=== PATIENT | female | born 2000 | race Caucasian/White ===

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

== ENCOUNTER 2018-02-17 14:35 | Emergency (ER) | payer MEDICAID ==
[~2018-02-17] VITALS: Ht 157.5 cm; Wt 61.2 kg
[~2018-02-17 14:35] MED LIST changes: +PSEUDOEPHEDRINE60 MG PO
[2018-02-17 14:44] VITALS: BP 103/63
[2018-02-17] MEDS ORDERED: Acetaminophen 500mg (ES) tab ORAL ONE (15:00)
--- NOTE | 2018-02-17 15:00 | Emergency Room Report ---
History of Present Illness General Chief Complaint: Pain Source: Patient, Medical Record (Bacilio Higginbotham) Present Illness HPI 17year-old female patient presents ER complaining of left rib pain for the past 3 days. Patient reports pain has been increasing since initial onset. Patient denies history of injury or trauma to the area. Patient denies other acute symptoms at this time. Patient denies chest pain, shortness breath, abdominal pain, diarrhea, constipation, dysuria, hematuria. patient states she is concerned that she "needed surgery" he has her brother recently had appendicitis surgery. Patient denies past medical history. Denies hx of asthma or cardiovascular symptoms. Reports last BM yesterday, normal. (Bacilio Higginbotham) Allergies: Coded Allergies: No Known Allergies (Unverified , 03/10/16) Patient History Past Medical History: see triage record Last Menstrual Period: 01/21/18 Reviewed Nursing Documentation: PMH: Agreed; PSxH: Agreed (Bacilio Higginbotham) Nursing Documentation-PMH Past Medical History: No History, Except For Hx Neurological Problems: Yes - migraine Hx Seizures: Yes (Bacilio Higginbotham) Review of Systems All Other Systems: negative except mentioned in HPI (Bacilio Higginbotham) Physical Exam Vital Signs Date Time Temp Pulse Resp B/P (MAP) Pulse Ox O2 Delivery O2 Flow Rate FiO2 02/17/18 14:38 97.9 87 18 103/63 100 Room Air 97.9 Sp02 EP Interpretation: reviewed, normal General Appearance: well appearing, no apparent distress, alert, GCS 15, non- toxic Head: normocephalic, atraumatic Eyes: bilateral eye normal inspection, bilateral eye PERRL ENT: hearing grossly normal, normal pharynx, no angioedema, normal voice, uvula midline, moist mucus membranes Neck: full range of motion Respiratory: lungs clear, normal breath sounds, no rhonchi, no respiratory distress, no accessory muscle use, no wheezing, speaking full sentences, other - anterior left ribs tender to palpation, no deformity, no ecchymosis, no flail chest, no palpable mass Cardiovascular #1: regular rate, rhythm, no edema Gastrointestinal: soft, no mass, non-distended, no guarding, no rebound, tenderness - left upper quadrant adjacent to ribs, other - no splenomegaly Musculoskeletal: back normal, digits/nails normal, gait/station normal, normal range of motion, non-tender Neurologic: alert, oriented x3, responsive, motor strength/tone normal, sensory intact Psychiatric: mood/affect normal Skin: no rash (Bacilio Higginbotham) Medical Decision Making PA Attestation Dr. Garcia is my supervising Physician whom patient management has been discussed with. (Bacilio Higginbotham) Diagnostic Impression: Primary Impression: Rib pain on left side ER Course Pt. presents to the ED c/o rib pain. Ddx considered but are not limited to fracture, sprain, strain, contusion, dislocation, constipation. Vital signs: are WNL, pt. is afebrile Ordered X-ray and pain medication. ER COURSE physical exam shows tenderness palpation of left anterior ribs, no deformity, no flail chest, no ecchymosis. Provided with pain medication. An X-ray of the left ribs were ordered, results show no acute fracture or disease, per the preliminary reading. An x-ray of the chest in KUB were ordered, results showed no acute disease per the preliminary reading. physical exam, hepatosplenomegaly, patient denies abdominal pain, low suspicion for mono at this time. Checked patient follow-up with primary care provider for further treatment and referral as needed. informed patient likely rib contusion versus costochondritis. instructed patient to take Tylenol for pain and inflammation symptoms. Patient instructed on rest, ice, heat. Followup with primary care provider for further treatment and evaluation. UA results show no nitrites, few bacteria and WBCs, patient asymptomatic, low suspicion for UTI at this time does not require treatment with antibiotics. urine negative. patient left prior to being discharged with paperwork. Contact patient by phone, informed patient of results of urine, urine negative. 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 Patient states that she would come pick it up later. ER precautions given. DISCHARGE: -Rx provided for Tylenol for pain symptoms. At this time pt. is stable for d/c to home. Patient is resting comfortably, in no acute distress, nontoxic appearing, talking without difficulty. Will provide printed patient care instructions, and any necessary prescriptions. Patient instructed to follow with primary care provider in 3 - 5 days and to request further orthopedic follow-up. Care plan and follow up instructions have been discussed with the patient prior to discharge. Take medications as directed. Patient questions asked and answered. Patient reports understanding and agreement to treatment plan. ER precautions given, patient instructed to return to ER immediately for any new or worsening of symptoms. - Please note that this Emergency Department Report was dictated using [employer] hand technology software, occasionally this can lead to erroneous entry secondary to interpretation by the dictation equipment. Labs Test 02/17/18 15:45 Urine Color Mera Urine Appearance Clear Urine pH 6 (4.5-8.0) Urine Specific [place] 1.020 (1.005-1.035) Urine Protein Negative (NEGATIVE) Urine Glucose (UA) Negative (NEGATIVE) Urine Ketones Negative (NEGATIVE) Urine Occult Blood Negative (NEGATIVE) Urine Nitrite Negative (NEGATIVE) Urine Bilirubin Negative (NEGATIVE) Urine Ictotest Negative Urine Urobilinogen Normal MG/DL (0.0-1.0) Urine Leukocyte Esterase 1+ (NEGATIVE) Urine RBC 0-2 /HPF (0 - 2) Urine WBC 2-4 /HPF (0 - 2) Urine Squamous Epithelial Cells Few /LPF (NONE/OCC) Urine Bacteria Few /HPF (NONE) Urine HCG, Qualitative Negative (NEGATIVE) (Bacilio Higginbotham P.A.) Chest X-Ray Diagnostic Results Chest X-Ray Diagnostic Results : Chest X-Ray Ordered: Yes # of Views/Limited/Complete: 1 View Indication: Chest Pain EP Interpretation: Yes PA Xray: Interpretation reviewed, by supervising MD, and agrees with findings. Interpretation: no consolidation, no effusion, no pneumothorax, no acute cardiopulmonary disease Impression: No acute disease PA Scribe Text Miguel Higginbotham PA-C (Bacilio Higginbotham P.A.) Chest X-Ray Diagnostic Results : Electronically Signed by: Lenoibandrea documentation reviewed by and is accurate, Live Garcia MD. (Live Garcia M.D.) Other X-Ray Diagnostic Results Other X-Ray Diagnostic Results #1: X-Ray ordered: left ribs # of Views/Limited Vs Complete: 4 View Indication: Pain EP Interpretation: Yes PA Xray: Interpretation reviewed, by supervising MD, and agrees with findings. Interpretation: no dislocation, no soft tissue swelling, no fractures Impression: No acute disease PA Scribe Text Miguel Higginbotham PA-C Other X-Ray Diagnostic Results #2: X-Ray ordered: KUB # of Views/Limited Vs Complete: 2 View Indication: Pain EP Interpretation: Yes PA Xray: Interpretation reviewed, by supervising MD, and agrees with findings. Interpretation: no dislocation, no soft tissue swelling, no fractures, nonspecific bowel gas Impression: No acute disease PA Scribe Text Miguel Higginbotham PA-C (Bacilio Higginbotham) Other X-Ray Diagnostic Results #1: Electronically Signed by: Scribe documentation reviewed by me and is accurate, Live Garcia MD. Other X-Ray Diagnostic Results #2: Electronically Signed by: Scribe documentation reviewed by me and is accurate, Live Garcia MD. (Live Garcia M.D.) Last Vital Signs Date Time Temp Pulse Resp B/P (MAP) Pulse Ox O2 Delivery O2 Flow Rate FiO2 02/17/18 14:44 97.9 86 18 103/63 100 Room Air 97.9 (Bacilio Higginbotham) Disposition: HOME, SELF-CARE Condition: Stable Scripts Acetaminophen* (TYLENOL EXTRA STRENGTH*) 500 Mg Tablet 500 MG ORAL Q8H PRN for Prn Headache/Temp > 101, #30 TAB 0 Refills Prov: Bacilio Higginbotham 02/17/18 Patient Instructions: Rib Contusion Additional Instructions: Patient instructed to follow up with primary care provider 3-5 and discuss further referral and imaging at that time. Discuss further workup as needed for possible spleen involvement, rule out mono if necessary. Patient instructed on rest, ice and heat. Take medications as directed. Patient questions asked and answered. ER precautions given, patient instructed to return to ER immediately for any new or worsening of symptoms. Bacilio Higginbotham February 17, 2018 15:00 Live Garcia M.D. February 18, 2018 02:40
[2018-02-17 16:11] LABS: APPEARANCE,URINE CLEAR; BILIRUBIN, URINE NEGATIVE (NEGATIVE); COLOR,URINE AMBER; GLUCOSE, URINE (UA) NEGATIVE (NEGATIVE); KETONES,URINE NEGATIVE (NEGATIVE); LEUKOCYTE ESTERASE ,URINE 1+ (NEGATIVE); NITRITE,URINE NEGATIVE (NEGATIVE); PH,URINE 6 (4.5-8.0); PROTEIN,URINE NEGATIVE (NEGATIVE); UROBILINOGEN,URINE NORMAL MG/DL (0.0-1.0)
[2018-02-17] MEDS ORDERED: TYLENOL EXTRA500 MG ORAL (16:31)
[2018-02-17 16:58] VITALS: BP 103/63
--- NOTE | 2018-02-18 09:34 | Diagnostic Imaging Report ---
Indication: Reason For Exam: PAIN Technique: Left RIBS, 5 views Comparison: None. Findings: The ribs are intact. No fracture. No evidence of bone destruction. There is no pneumothorax. Impression: Normal left ribs.
--- NOTE | 2018-02-18 09:35 | Diagnostic Imaging Report ---
Indication: Reason For Exam: PAIN Technique: XRAY Chest 1v Comparison: 03/09/2017. Findings: The cardiomediastinal silhouette is normal. The lungs are clear. There is no evidence of pleural fluid. The bones are unremarkable. Impression: Normal chest.
--- NOTE | 2018-02-18 09:37 | Diagnostic Imaging Report ---
Indication: Reason For Exam: PAIN Technique: XRAY Abdomen 1v Comparison: None. Findings: The bowel gas pattern is nonobstructive. The bones are unremarkable. No free fluid. No gross free air. Impression: Normal.
== END 2018-02-17 17:00 | disposition home or self-care (01) ==
LOC: EMR 15:16
DX: R07.81 Pleurodynia (principal); Z86.69 Personal history of other diseases of the nervous system and sense organs
CPT/HCPCS: 71045; 74018; 81003; 81025; 99284

== ENCOUNTER 2018-05-30 02:48 | Emergency (ER) | payer MEDICAID ==
[~2018-05-30] VITALS: Ht 157.5 cm; Wt 65.8 kg
[2018-05-30 02:54] VITALS: BP 119/75
[2018-05-30] MEDS ORDERED: NKM (02:54)
--- NOTE | 2018-05-30 03:04 | Emergency Room Report ---
History of Present Illness General Chief Complaint: Abdominal Pain Source: Patient Present Illness HPI Is a 18-year-old female with no significant past medical history. She does have history of chronic abdominal pain that comes around her menstrual flow. She's been on control pill and it seemed to help related. She stopped control pill and now pain came on again an hour ago. Onset was acute. Radiating to her back. Mostly left lower quadrant left suprapubic area. Pain is 9 out of 10. No nausea no vomiting. No fever chills. Similar symptom in the past. Workup in the past show that she has cyst in her ovary. Allergies: Coded Allergies: No Known Allergies (Unverified , 03/10/16) Patient History Past Medical History: see triage record, old chart reviewed Past Surgical History: none Pertinent Family History: none Social History: Denies: smoking Last Menstrual Period: 05/18/18 Now: No Immunizations: other Reviewed Nursing Documentation: PMH: Agreed; PSxH: Agreed Nursing Documentation-PMH Past Medical History: No Stated History Hx Neurological Problems: Yes - migraine Hx Seizures: Yes Review of Systems Eye: Denies: eye pain, blurred vision ENT: Denies: ear pain, nose congestion, throat swelling Respiratory: Denies: cough, shortness of breath Cardiovascular: Denies: chest pain, palpitations Gastrointestinal: Reports: abdominal pain; Denies: diarrhea, nausea, vomiting Musculoskeletal: Denies: back pain, joint pain Skin: Denies: rash Neurological: Denies: headache, numbness Endocrine: Denies: increased thirst, increased urine Hematologic/Lymphatic: Denies: easy bruising All Other Systems: negative except mentioned in HPI Physical Exam Vital Signs Date Time Temp Pulse Resp B/P (MAP) Pulse Ox O2 Delivery O2 Flow Rate FiO2 05/30/18 02:49 98.0 64 18 119/75 100 Room Air 98.1 vitals normal Sp02 EP Interpretation: reviewed, normal General Appearance: well appearing, no apparent distress, alert Head: normocephalic, atraumatic Eyes: bilateral eye PERRL, bilateral eye EOMI ENT: hearing grossly normal, normal pharynx Neck: full range of motion, supple, no meningismus Respiratory: chest non-tender, lungs clear, normal breath sounds Cardiovascular #1: regular rate, rhythm, no murmur Gastrointestinal: normal bowel sounds, no mass, no organomegaly, no bruit, non- distended, tenderness - left lower quadrant Musculoskeletal: back normal, gait/station normal, normal range of motion Psychiatric: mood/affect normal Skin: warm/dry Medical Decision Making Diagnostic Impression: Primary Impression: Abdominal pain Qualified Codes: R10.84 - Generalized abdominal pain Additional Impressions: Ovarian cyst Qualified Codes: N83.201 - Unspecified ovarian cyst, right side; N83.202 - Unspecified ovarian cyst, left side UTI (urinary tract infection) Qualified Codes: N30.00 - Acute cystitis without hematuria ER Course Patient presents with acute abdominal pain. Most likely a rupture ovarian cyst. Her dermoid cysts appeared to be slightly larger especially in the left side. No evidence of any torsion. She is comfortable. She does have a UTI. Her hypokalemia is probably secondary to pain and hyperventilation. Not on any diuretic. We'll discharge home. She may need follow-up with video effects editor. Lab Results Impression labs unremarkable CT/MRI/US Diagnostic Results CT/MRI/US Diagnostic Results : Imaging Test Ordered: CT abdomen and pelvis Impression Read by radiologist. Bilateral dermoid cysts. Normal appendix. Small amount of fluid in the pelvic cul-de-sac. Last Vital Signs Date Time Temp Pulse Resp B/P (MAP) Pulse Ox O2 Delivery O2 Flow Rate FiO2 05/30/18 02:54 98.1 64 18 119/75 100 Room Air 98.1 Status: improved Disposition: HOME, SELF-CARE Condition: Stable Scripts Ibuprofen* (MOTRIN*) 600 Mg Tablet 600 MG ORAL THREE TIMES A DAY, #30 TAB 0 Refills Prov: PEACE WEBBER M.D. 05/30/18 Cephalexin* (KEFLEX*) 500 Mg Capsule 500 MG ORAL TID, #21 CAP Prov: PEACE WEBBER M.D. 05/30/18 Hydrocodone/Acetaminophen 5-325* (HYDROCODONE/ACETAMINOPHEN 5-325*) 1 Each Tablet 1 TAB ORAL Q6H PRN for For Pain, #10 TAB 0 Refills Prov: PEACE WEBBER M.D. 05/30/18 Additional Instructions: Follow-up with your doctor within a week. You may benefit from referral to see a video effects editor. Return if symptom worsen. PEACE WEBBER M.D. May 30, 2018 03:04
[2018-05-30] MEDS ORDERED: Morphine Sulfate 4mg/ml Inj (IV USE ONLY) IVP ONE (03:15)
[2018-05-30] MEDS ORDERED: Ketorolac 30mg Inj IV ONE (03:15)
[2018-05-30 03:16] LABS: BILIRUBIN, URINE NEGATIVE (NEGATIVE); COLOR,URINE PALE YELLOW; GLUCOSE, URINE (UA) NEGATIVE (NEGATIVE); KETONES,URINE NEGATIVE (NEGATIVE); LEUKOCYTE ESTERASE ,URINE 1+ (NEGATIVE); NITRITE,URINE POSITIVE (NEGATIVE); PH,URINE 8 (4.5-8.0); PROTEIN,URINE NEGATIVE (NEGATIVE); UROBILINOGEN,URINE NORMAL MG/DL (0.0-1.0)
[2018-05-30 03:22] LABS: APPEARANCE,URINE SLIGHTLY CLOUDY
[2018-05-30 03:27] LABS: BASOPHILS % (AUTO) 0.9 % (0.0-2.0); EOSINOPHILS % (AUTO) 2.5 % (0.0-3.0); HEMOGLOBIN 13.8 G/DL (12.0-16.0); MEAN CORPUSCULAR VOLUME 90 FL (80-99); MONOCYTES % (AUTO) 9.7 % (1.0-10.0); PLATELET COUNT 201 K/UL (150-450); RED BLOOD COUNT 4.44 M/UL (4.20-5.40); RED CELL DISTRIBUTION WIDTH 10.2 % (11.6-14.8); WHITE BLOOD COUNT 7.9 K/UL (4.8-10.8)
[2018-05-30 03:43] LABS: ANION GAP 7 mmol/L (5-15); BLOOD UREA NITROGEN 12 mg/dL (7-18); CALCIUM 8.5 MG/DL (8.5-10.1); CARBON DIOXIDE 27 MMOL/L (21-32); CHLORIDE 105 MMOL/L (98-107); CREATININE 0.9 MG/DL (0.55-1.30); POTASSIUM 3.1 MMOL/L (3.5-5.1); SODIUM 139 MMOL/L (136-145)
[2018-05-30 03:49] LABS: ALANINE AMINOTRANSFERASE 23 U/L (12-78); ALBUMIN 3.7 G/DL (3.4-5.0); ALBUMIN/GLOBULIN RATIO 1.1 (1.0-2.7); ALKALINE PHOSPHATASE 70 U/L (46-116); ASPARTATE AMINO TRANSFERASE 19 U/L (15-37); BILIRUBIN,TOTAL 0.3 MG/DL (0.2-1.0)
[2018-05-30] MEDS ORDERED: cefTRIAXone 1 GM in NS 55 ML IVPB ONE (04:30)
[2018-05-30] MEDS ORDERED: HYDROCODON-ACE1 EA15 ORAL (05:03)
[2018-05-30] MEDS ORDERED: IBUPROFEN600 MG ORAL (05:03)
[2018-05-30] MEDS ORDERED: CEPHALEXIN500 MG ORAL (05:03)
[2018-05-30 05:20] VITALS: BP 119/75
--- NOTE | 2018-05-30 08:33 | Diagnostic Imaging Report ---
Indication: Abdominal pain Technique: Continuous helical transaxial imaging of the abdomen and pelvis was obtained from the lung bases to the pubic symphysis. No intravenous contrast was administered. Coronal 2-D reformats were also obtained. Automatic Exposure Control was utilized. Total Dose length Product (DLP): 571.[address] Dose Index Volume (CTDIvol): 11.66 mGy Comparison: none Findings: The lung bases are clear. No free fluid or free air identified. No nephrolithiasis or hydronephrosis seen. Appendix is normal. There is no evidence of bowel obstruction. Within the pelvis, there are bilateral heterogeneous masses containing fat and calcification consistent with dermoid cyst. In the left the mass measures 4.2 x 5.9 cm and on the right 2.5 x 3.2 cm on transaxial images. The urinary bladder is unremarkable. The uterus is present and noted. IMPRESSION: Bilateral ovarian dermoids. Negative exam otherwise. [facility] has communicated the preliminary results to the Emergency Department. Their findings are largely concordant with this report. The CT scanner at [facility] is accredited by the [employer] and the scans are performed using dose optimization techniques as appropriate to a performed exam including Automatic Exposure control.
== END 2018-05-30 05:20 | disposition home or self-care (01) ==
LOC: EDBD 02:48 → EMR 03:08
DX: N30.00 Acute cystitis without hematuria (principal); N83.201 Unspecified ovarian cyst, right side; R10.84 Generalized abdominal pain
CPT/HCPCS: 36415; 74176; 80053; 81003; 81025; 83690; 85025; 87086; 87181; 96361; 96365; 96375; 99284; J0696; J1885; J2270; J2405

== ENCOUNTER 2018-06-10 23:07 | Emergency (ER) | payer MEDICAID ==
[~2018-06-10] VITALS: Ht 157.5 cm; Wt 65.8 kg
[~2018-06-10 23:07] MED LIST changes: +HYDROCODON-ACE1 EA15 ORAL
[2018-06-10 23:28] VITALS: BP 112/71
[2018-06-10] MEDS ORDERED: Morphine Sulfate 4mg/ml Inj (IV USE ONLY) IVP ONE (23:45)
[2018-06-11 00:16] LABS: APPEARANCE,URINE CLEAR; BILIRUBIN, URINE NEGATIVE (NEGATIVE); COLOR,URINE PALE YELLOW; GLUCOSE, URINE (UA) NEGATIVE (NEGATIVE); KETONES,URINE NEGATIVE (NEGATIVE); LEUKOCYTE ESTERASE ,URINE 1+ (NEGATIVE); NITRITE,URINE NEGATIVE (NEGATIVE); PH,URINE 6.5 (4.5-8.0); PROTEIN,URINE NEGATIVE (NEGATIVE); UROBILINOGEN,URINE NORMAL MG/DL (0.0-1.0)
[2018-06-11 00:17] LABS: ANION GAP 7 mmol/L (5-15); BLOOD UREA NITROGEN 6 mg/dL (7-18); CALCIUM 8.8 MG/DL (8.5-10.1); CARBON DIOXIDE 26 MMOL/L (21-32); CHLORIDE 107 MMOL/L (98-107); CREATININE 0.7 MG/DL (0.55-1.30); POTASSIUM 3.9 MMOL/L (3.5-5.1); SODIUM 140 MMOL/L (136-145)
[2018-06-11 00:21] LABS: ALANINE AMINOTRANSFERASE 27 U/L (12-78); ALBUMIN 3.7 G/DL (3.4-5.0); ALBUMIN/GLOBULIN RATIO 1.2 (1.0-2.7); ALKALINE PHOSPHATASE 70 U/L (46-116); ASPARTATE AMINO TRANSFERASE 20 U/L (15-37); BILIRUBIN,TOTAL 0.3 MG/DL (0.2-1.0)
[2018-06-11 00:33] LABS: BASOPHILS % (AUTO) 1.1 % (0.0-2.0); EOSINOPHILS % (AUTO) 1.2 % (0.0-3.0); HEMATOCRIT 41.3 % (37.0-47.0); HEMOGLOBIN 13.8 G/DL (12.0-16.0); LYMPHOCYTES % (AUTO) 30.8 % (20.0-45.0); MEAN CORPUSCULAR VOLUME 93 FL (80-99); MONOCYTES % (AUTO) 8.3 % (1.0-10.0); NEUTROPHILS % (AUTO) 58.6 % (45.0-75.0); PLATELET COUNT 207 K/UL (150-450); RED BLOOD COUNT 4.42 M/UL (4.20-5.40); WHITE BLOOD COUNT 8.1 K/UL (4.8-10.8)
--- NOTE | 2018-06-11 00:48 | Emergency Room Report ---
History of Present Illness General Chief Complaint: Abdominal Pain Source: Patient Present Illness HPI 18-year-old female presents ED complaining of abdominal pain. Pain is sharp, lower, 8 out of 10, nonradiating. Notes nausea and vomiting. States she gets this pain when she goes off of her control. States that she was seen here about 10 days ago for similar pain. Was subsequently discharged on antibiotics. States that she completed the antibiotic prescription with no resolution of pain. Denies fevers or chills. Denies any diarrhea. Denies any vaginal bleeding or discharge. No other aggravating relieving factors. Denies any other associated symptoms Allergies: Coded Allergies: No Known Allergies (Unverified , 03/10/16) Patient History Past Medical History: seizures, migraines Past Surgical History: none Pertinent Family History: none Social History: Denies: smoking, alcohol use, drug use Last Menstrual Period: 05/24/2018 Now: No : 1 Para: 0 Immunizations: UTD Reviewed Nursing Documentation: PMH: Agreed; PSxH: Agreed Nursing Documentation-PMH Past Medical History: No History, Except For Hx Neurological Problems: Yes - migraine Hx Seizures: Yes Review of Systems All Other Systems: negative except mentioned in HPI Physical Exam Vital Signs Date Time Temp Pulse Resp B/P (MAP) Pulse Ox O2 Delivery O2 Flow Rate FiO2 06/10/18 23:14 97.6 67 18 112/71 98 Room Air 97.5 Sp02 EP Interpretation: reviewed, normal General Appearance: no apparent distress, alert, GCS 15, non-toxic Head: normocephalic, atraumatic Eyes: bilateral eye normal inspection, bilateral eye PERRL ENT: hearing grossly normal, normal pharynx, no angioedema, normal voice Neck: full range of motion, supple/symm/no masses Respiratory: chest non-tender, lungs clear, normal breath sounds, speaking full sentences Cardiovascular #1: regular rate, rhythm, no edema Cardiovascular #2: 2+ carotid (R), 2+ carotid (L), 2+ radial (R), 2+ radial (L) , 2+ dorsalis pedis (R), 2+ dorsalis pedis (L) Gastrointestinal: normal bowel sounds, soft, non-distended, no guarding, no rebound, tenderness Rectal: deferred Genitourinary: normal inspection, no CVA tenderness Musculoskeletal: back normal, gait/station normal, normal range of motion, non- tender Neurologic: alert, oriented x3, responsive, motor strength/tone normal, sensory intact, speech normal Psychiatric: judgement/insight normal, memory normal, mood/affect normal, no suicidal/homicidal ideation Reflexes: 3+ bicep (R), 3+ bicep (L), 3+ tricep (R), 3+ tricep (L), 3+ knee (R) , 3+ knee (L) Skin: normal color, no rash, warm/dry, well hydrated Lymphatic: no adenopathy Medical Decision Making Diagnostic Impression: Primary Impression: Dermoid cyst of both ovaries Additional Impression: Hemorrhagic ovarian cyst ER Course Hospital Course 18-year-old F presents to ED with lower abdominal pain Differential diagnosis includes- cystitis, UTI, constipation, ovarian cyst/ torsion Clinical course Patient placed on stretcher. After initial history and physical I ordered labs , IV fluids, Pelvic US Patient was seen here on 05/30. Had CT scan which commented on dermoid cysts Labs - no leukocytosis, electrolytes ok, LFTs normal, UA unremarkable Pelvic US - bilateral dermoid cysts, bilateral hemorrhagic cysts Discussed findings with patient. Patient is safe for discharge per we will provide [employer]CTOR referral and pain medications. I feel this is a highly complex case requiring extensive working including EKG/ Rhythm strip, Xray/CT/US, Blood/urine lab work, repeat exams while in ED, and administration of strong opiates/narcotics for pain control, admission to hospital or close patient follow up. Diagnosis - dermoid cysts of both ovaries, hemorrhagic ovarian cysts Stable and discharged to home with Rx [place]. Followup with PMD/OBGYN. Return to ED if symptoms recur or worsen Labs Test 06/10/18 23:20 06/10/18 23:49 Urine Color Pale yellow Urine Appearance Clear Urine pH 6.5 (4.5-8.0) Urine Specific [place] 1.015 (1.005-1.035) Urine Protein Negative (NEGATIVE) Urine Glucose (UA) Negative (NEGATIVE) Urine Ketones Negative (NEGATIVE) Urine Blood Negative (NEGATIVE) Urine Nitrite Negative (NEGATIVE) Urine Bilirubin Negative (NEGATIVE) Urine Urobilinogen Normal MG/DL (0.0-1.0) Urine Leukocyte Esterase 1+ (NEGATIVE) Urine RBC 0 /HPF (0 - 2) Urine WBC 0-2 /HPF (0 - 2) Urine Squamous Epithelial Cells Moderate /LPF (NONE/OCC) Urine Bacteria Moderate /HPF (NONE) Urine HCG, Qualitative Negative (NEGATIVE) White Blood Count 8.1 K/UL (4.8-10.8) Red Blood Count 4.42 M/UL (4.20-5.40) Hemoglobin 13.8 G/DL (12.0-16.0) Hematocrit 41.3 % (37.0-47.0) Mean Corpuscular Volume 93 FL (80-99) Mean Corpuscular Hemoglobin 31.3 PG (27.0-31.0) Mean Corpuscular Hemoglobin Concent 33.4 G/DL (32.0-36.0) Red Cell Distribution Width 11.0 % (11.6-14.8) Platelet Count 207 K/UL (150-450) Mean Platelet Volume 11.9 FL (6.5-10.1) Neutrophils (%) (Auto) 58.6 % (45.0-75.0) Lymphocytes (%) (Auto) 30.8 % (20.0-45.0) Monocytes (%) (Auto) 8.3 % (1.0-10.0) Eosinophils (%) (Auto) 1.2 % (0.0-3.0) Basophils (%) (Auto) 1.1 % (0.0-2.0) Sodium Level 140 MMOL/L (136-145) Potassium Level 3.9 MMOL/L (3.5-5.1) Chloride Level 107 MMOL/L (98-107) Carbon Dioxide Level 26 MMOL/L (21-32) Anion Gap 7 mmol/L (5-15) Blood Urea Nitrogen 6 mg/dL (7-18) Creatinine 0.7 MG/DL (0.55-1.30) Estimat Glomerular Filtration Rate > 60 mL/min (>60) Glucose Level 86 MG/DL (74-106) Calcium Level 8.8 MG/DL (8.5-10.1) Total Bilirubin 0.3 MG/DL (0.2-1.0) Aspartate Amino Transf (AST/SGOT) 20 U/L (15-37) Alanine Aminotransferase (ALT/SGPT) 27 U/L (12-78) Alkaline Phosphatase 70 U/L (46-116) Total Protein 6.8 G/DL (6.4-8.2) Albumin 3.7 G/DL (3.4-5.0) Globulin 3.1 g/dL Albumin/Globulin Ratio 1.2 (1.0-2.7) Lipase 171 U/L (73-393) CT/MRI/US Diagnostic Results CT/MRI/US Diagnostic Results : Imaging Test Ordered: Pelvic US Impression dermoid and hemorrhagic cysts bilaterally. fluid adjacent to both ovaries. Last Vital Signs Date Time Temp Pulse Resp B/P (MAP) Pulse Ox O2 Delivery O2 Flow Rate FiO2 06/10/18 23:58 97.5 06/10/18 23:28 67 18 112/71 98 Room Air Status: improved Disposition: HOME, SELF-CARE Condition: Stable Scripts Hydrocodone Bit/Acetaminophen 10-325* (NORCO 10-325*) 1 Each Tablet 1 TAB ORAL Q6H PRN for For Pain, #10 TAB 0 Refills PRN PAIN Prov: Cosmo Vogel MD 06/11/18 Referrals: [facility],REFERRING (PCP) Cosmo Vogel MD Jun 11, 2018 00:48
[2018-06-11] MEDS ORDERED: Ketorolac 30mg Inj IV ONE (01:00)
[2018-06-11] MEDS ORDERED: Morphine Sulfate 4mg/ml Inj (IV USE ONLY) IVP ONE (01:00)
[2018-06-11] MEDS ORDERED: NORCO 10-325 T1 EACH ORAL (01:03)
[2018-06-11 01:11] VITALS: BP_SYST 112; BP_SYST 118; BP_DIAS 64; BP_DIAS 71
--- NOTE | 2018-06-11 10:22 | Diagnostic Imaging Report ---
Indication: Abdominal pain Technique: Transabdominal and transvaginal images Comparison: Reference made to CT scan abdomen and pelvis 05/30/2018 Findings: Uterus measures 6.5 cm length by 2.8 cm AP. Endometrium measures 8 mm thick. No myometrial abnormality. 3.7 cm in length, demonstrates a 2.3 cm echogenic lesion consistent with dermoid described on recent CT scan. The left ovary measures 3.3 cm in length, demonstrates a 3.7 cm bipartite mixed echogenicity lesion corresponding to the dermoid described on recent CT scan. No free cul-de-sac fluid. Both ovaries demonstrate normal blood flow on color Doppler imaging. Impression: Bilateral dermoids, also described on recent CT scan No acute process
== END 2018-06-11 01:14 | disposition home or self-care (01) ==
LOC: EMR 23:52
DX: D27.1 Benign neoplasm of left ovary (principal); D27.0 Benign neoplasm of right ovary
CPT/HCPCS: 36415; 76830; 76856; 80053; 81003; 81025; 83690; 85025; 87086; 96374; 96375; 96376; 99284; J1885; J2270

== ENCOUNTER 2018-12-19 19:41 | Inpatient (IN) | payer MEDICAID ==
[~2018-12-19] VITALS: Ht 157.5 cm; Wt 63.5 kg
[~2018-12-19 19:41] MED LIST changes: +NORCO 10-325 T1 EACH ORAL
[2018-12-19 19:55] VITALS: BP 105/66
--- NOTE | 2018-12-19 19:55 | NUR ---
ED Nurse Note: pt walked in c/o abd pain, pt states she was here yesterday and was dx ovarian cyst but pain didn't go away and worsen. pt AA&ox4, gcs=15, skin warm and dry, resp even and unlabored on RA, -n/v/d, abd tender and soft, will cont monitor.
[2018-12-19] MEDS ORDERED: Morphine Sulfate 4mg/ml Inj (IV USE ONLY) IVP ONE (20:30)
--- NOTE | 2018-12-19 20:35 | NUR ---
ED Nurse Note: ultrasound at the bedside.
--- NOTE | 2018-12-19 20:40 | NUR ---
ED Nurse Note: pt states pain is better with medication, will cont monitor.
--- NOTE | 2018-12-19 20:47 | Emergency Room Report ---
History of Present Illness General Chief Complaint: Abdominal Pain Source: Patient (Debbie Bravo) Present Illness HPI 18-year-old female turns to the emergency department complaining of 9 out of 10 in severity lower abdominal pain since midnight last night. Patient was seen here about 1 AM had labs done and was given several rounds of IV pain medication as well as antibiotics before being discharged. Patient states that her pain has worsened and is not controlled with the prescribed prescriptions. Patient denies fevers or chills she reports some abdominal fullness/bloating. Patient denies constipation or diarrhea, vaginal bleeding or discharge, nausea or vomiting. Patient reports history of cysts in the past but states that this is more painful than what she has experienced in the past. Patient reports that she has a primary care provider however she has never gotten a sourcing manager : Referral that has not been evaluated for her repeat ED visits for ovarian cysts. She denies or suspicion of STI. No relieving factors at this time she states that pain is exacerbated upon pressing on her stomach or certain movements. (Debbie Bravo) Allergies: Coded Allergies: No Known Allergies (Unverified , 03/10/16) Patient History Past Medical History: see triage record Past Surgical History: none Pertinent Family History: none Last Menstrual Period: Nov 18 2018 Now: No Reviewed Nursing Documentation: PMH: Agreed; PSxH: Agreed (Debbie Bravo) Nursing Documentation-PMH Hx Neurological Problems: Yes - migraine Hx Seizures: Yes (Debbie Bravo) Review of Systems All Other Systems: negative except mentioned in HPI (Debbie Bravo) Physical Exam Vital Signs Date Time Temp Pulse Resp B/P (MAP) Pulse Ox O2 Delivery O2 Flow Rate FiO2 12/19/18 19:47 98.1 63 19 105/66 97 Room Air Sp02 EP Interpretation: reviewed, normal General Appearance: alert, GCS 15, non-toxic, moderate distress Head: normocephalic, atraumatic Eyes: bilateral eye normal inspection, bilateral eye PERRL ENT: hearing grossly normal, normal voice Neck: full range of motion Respiratory: lungs clear, normal breath sounds, speaking full sentences Cardiovascular #1: regular rate, rhythm Gastrointestinal: normal bowel sounds, soft, distended, tenderness - lower abdomen -midline. no peritoneal signs, other Rectal: deferred Genitourinary: normal inspection, no CVA tenderness Musculoskeletal: gait/station normal, normal range of motion, non-tender Neurologic: alert, oriented x3, responsive, motor strength/tone normal, sensory intact, speech normal, grossly normal Psychiatric: judgement/insight normal Skin: normal color, no rash, warm/dry, well hydrated (Debbie Bravo) Medical Decision Making PA Attestation Dr. Torres is my supervising Physician whom patient management has been discussed with. (Debbie Bravo) Diagnostic Impression: Primary Impression: Ruptured ovarian cyst Additional Impression: Intractable abdominal pain ER Course 18-year-old female turns to the emergency department complaining of 9 out of 10 in severity lower abdominal pain since midnight last night. Patient was seen here about 1 AM had labs done and was given several rounds of IV pain medication as well as antibiotics before being discharged. Patient states that her pain has worsened and is not controlled with the prescribed prescriptions. Patient denies fevers or chills she reports some abdominal fullness/bloating. Patient denies constipation or diarrhea, vaginal bleeding or discharge, nausea or vomiting. Patient reports history of cysts in the past but states that this is more painful than what she has experienced in the past. Patient reports that she has a primary care provider however she has never gotten a sourcing manager : Referral that has not been evaluated for her repeat ED visits for ovarian cysts. She denies or suspicion of STI. No relieving factors at this time she states that pain is exacerbated upon pressing on her stomach or certain movements. Ddx considered but are not limited to Diverticulitis, acute appy, diarrhea,UC, PUD, GE, pancreatitis, gallstone, ovarian torsion, ectopic , PID tubo-ovarian abscess. Vital signs: are WNL, pt. is afebrile H&PE are most consistent with possible ovarian cyst rupture vs. complication from unresolved dermoid cyst. due to this being a return visit where pt. required strong opiate main meds delivered IV at last visit and now pt. has uncontrolled pain and is considered for admission. ORDERS: -CBC, CMP, -- not ordered as they were as perform this morning and were within normal limits. -UA: review of urinalysis that was performed this morning showed nitrate positive UTI. -URINE HCG: review of testing that was performed this morning was negative US Pelvic Complete: ED INTERVENTIONS: - 1 liter NS IV -4mg Morphine IV DISCHARGE: At this time pt. is stable for d/c to home. Will provide printed patient care instructions, and any necessary prescriptions. Care plan and follow up instructions have been discussed with the patient prior to discharge. (Debbie Bravo) ER Course Patient signout to me. I saw this patient earlier this morning. She has a history of rupture ovarian cyst that she came in with abdominal pain. Labs were unremarkable. I sent her home with [place] and Motrin. It wasn't helping. She came back with continued pain. Ultrasound showed ovarian cyst with fluid in the pelvis. CT scan show rupture ovarian cyst. Because of the intractable pain, will admit for pain control. (Donato Hercules MD) CT/MRI/US Diagnostic Results CT/MRI/US Diagnostic Results : Imaging Test Ordered: US pelvic Complete Impression results pending at time of sign out. (Debbie Bravo) CT/MRI/US Diagnostic Results : Imaging Test Ordered: CT abdomen and pelvis Impression Read by radiologist. Presumed hemorrhagic cyst involving the left ovary measuring 3.4 cm. (Donato Hercules MD) Last Vital Signs Date Time Temp Pulse Resp B/P (MAP) Pulse Ox O2 Delivery O2 Flow Rate FiO2 12/19/18 19:47 98.1 63 19 105/66 97 Room Air (Debbie Bravo) Disposition: ADMITTED INPATIENT Condition: Serious Signed Out To: Dr. Hercules (Debbie Bravo) Debbie Bravo Dec 19, 2018 20:47 Donato Hercules MD Dec 19, 2018 23:04
[2018-12-19 20:55] VITALS: BP 120/67
[2018-12-19] MEDS ORDERED: Ketorolac 30mg Inj IV ONE (22:00)
[2018-12-19] MEDS ORDERED: Morphine Sulfate 10mg/ml Inj IVP ONE (22:00)
[2018-12-19 22:05] LABS: BASOPHILS % (AUTO) 0.4 % (0.0-2.0); EOSINOPHILS % (AUTO) 1.1 % (0.0-3.0); HEMATOCRIT 37.2 % (37.0-47.0); HEMOGLOBIN 12.5 G/DL (12.0-16.0); LYMPHOCYTES % (AUTO) 14.8 % (20.0-45.0); MEAN CORPUSCULAR VOLUME 95 FL (80-99); MONOCYTES % (AUTO) 8.4 % (1.0-10.0); NEUTROPHILS % (AUTO) 75.3 % (45.0-75.0); PLATELET COUNT 128 K/UL (150-450); RED BLOOD COUNT 3.93 M/UL (4.20-5.40); WHITE BLOOD COUNT 6.4 K/UL (4.8-10.8)
--- NOTE | 2018-12-19 22:23 | NUR ---
ED Nurse Note: pt off to CT.
--- NOTE | 2018-12-19 22:40 | NUR ---
ED Nurse Note: pt states medication is helping pt's pain, will cont monitor. pt advised to notify staff if needed assist or have pain.
[2018-12-19] MEDS ORDERED: Promethazine HCl 12.5 MG in NS 55 ML IV PRN (23:15)
[2018-12-19] MEDS ORDERED: Promethazine HCl 25 MG in NS 55 ML IV PRN (23:15)
[2018-12-19] MEDS ORDERED: Miralax 17gm pkt ORAL PRN (23:15)
[2018-12-19] MEDS ORDERED: Metoclopramide 10mg/2ml Inj IVP PRN (23:15)
[2018-12-19] MEDS ORDERED: LORazepam Inj 2mg/ml 1ml IV PRN (23:15)
[2018-12-19] MEDS ORDERED: Mylanta II UD 30ml ORAL PRN (23:15)
[2018-12-19] MEDS ORDERED: Nitroglycerin Subl 0.4mg tab SL PRN (23:15)
--- NOTE | 2018-12-19 23:32 | NUR ---
ED Nurse Note: report given to MAEVE Blackwood from [place] to continue care, pt transferred to [place], all belongings sent w/ pt, iv intact and patent, vss.
[2018-12-19] MEDS: D5 1/2NS 1,000 ML IV SCH (23:59)
--- NOTE | 2018-12-20 00:15 | NUR ---
NURSE NOTES: Received patient from ER, report given by Brook MCFARLANE, belongings list been verified and items are accounted for, VSS, afebrile, alert awake, ambulatory, NPO except ice and meds, patient is oriented to the room, call light is within reach, asked patient to call whenever needs to ambulate, bed is in low position, locked and alarm is on. Will continue to monitor for safety and comfort.
[2018-12-20 04:00] VITALS: BP 102/45
[2018-12-20] MEDS: Morphine Sulfate 2mg/ml Inj(IV/IM USE ONLY) IVP PRN ×3 (04:47→12:53)
--- NOTE | 2018-12-20 06:52 | NUR ---
HAND-OFF: Report given to Fern MCFARLANE.
[2018-12-20 07:12] LABS: BASOPHILS % (AUTO) 0.2 % (0.0-2.0); EOSINOPHILS % (AUTO) 1.3 % (0.0-3.0); HEMOGLOBIN 11.6 G/DL (12.0-16.0); LYMPHOCYTES % (AUTO) 18.5 % (20.0-45.0); MEAN CORPUSCULAR VOLUME 95 FL (80-99); MONOCYTES % (AUTO) 9.6 % (1.0-10.0); NEUTROPHILS % (AUTO) 70.4 % (45.0-75.0); PLATELET COUNT 129 K/UL (150-450); RED BLOOD COUNT 3.67 M/UL (4.20-5.40); RED CELL DISTRIBUTION WIDTH 11.3 % (11.6-14.8); WHITE BLOOD COUNT 5.2 K/UL (4.8-10.8)
[2018-12-20 07:30] LABS: ALANINE AMINOTRANSFERASE 20 U/L (12-78); ALBUMIN 2.9 G/DL (3.4-5.0); ALKALINE PHOSPHATASE 42 U/L (46-116); AMYLASE 42 U/L (25-115); ANION GAP 11 mmol/L (5-15); ASPARTATE AMINO TRANSFERASE 14 U/L (15-37); BILIRUBIN,TOTAL 0.7 MG/DL (0.2-1.0); BLOOD UREA NITROGEN 9 mg/dL (7-18); CALCIUM 8.1 MG/DL (8.5-10.1); CARBON DIOXIDE 21 MMOL/L (21-32); CHLORIDE 105 MMOL/L (98-107); CREATININE 0.7 MG/DL (0.55-1.30); POTASSIUM 3.7 MMOL/L (3.5-5.1); SODIUM 137 MMOL/L (136-145)
--- NOTE | 2018-12-20 07:30 | NUR ---
NURSE NOTES: Pt awake fluids running . IV site patent able to verbalize known needs. Call light is in reach
[2018-12-20 08:00] VITALS: BP 97/60
[2018-12-20] MEDS: Pantoprazole Inj IV SCH (08:47)
[2018-12-20] MEDS ORDERED: Heparin 5000 units/ml inj SUBQ SCH (09:00)
--- NOTE | 2018-12-20 09:34 | NUR ---
CASE MANAGEMENT:REVIEW 18 YR OLD FEMALE FROM HOME TO ER CC; ABDOMINAL PAIN X2 DAYS PMH: OVARIAN CYST SI:INTRACTABLE ABDOMINAL PAIN RUPTURED OVARIAN CYST 98.1 63 19 105/66 97% ON RA [id number]-128 IS: 1L NS BOLUS IV MORPHINE X2 IV ZOFRAN X1 IV TORADOL X1 PELVIC ULTRASOUND : TO MED/SURG [facility]
--- NOTE | 2018-12-20 09:44 | Diagnostic Imaging Report ---
Indication: Abdominal pain Technique: Continuous helical transaxial imaging of the abdomen and pelvis was obtained from the lung bases to the pubic symphysis. No intravenous contrast was administered. Coronal 2-D reformats were also obtained. Automatic Exposure Control was utilized. Total Dose length Product (DLP): 743.[address] Dose Index Volume (CTDIvol): 14.79 mGy Comparison: none Findings: The lung bases are clear. The stomach is distended with food and particulate matter. Gallbladder is unremarkable. Solid organs are not adequately evaluated on noncontrast imaging. That said no obvious abnormalities seen. The appendix is not identified. There is no nephrolithiasis or hydronephrosis definitely identified. The bladder is unremarkable. Within the pelvis, there is evidence of bilateral ovarian dermoids seen as the masses that exhibited mixed signal intensity ranging from fat to soft tissue and calcification. The right ovarian dermoid measures about 2.5 cm and the left about 4 cm. Uterus is noted. There is mild free fluid. IMPRESSION: Bilateral ovarian dermoid tumors as described above. Nonidentification of the appendix. Negative exam otherwise [facility] has communicated the preliminary results to the Emergency Department. Their findings are largely concordant with this report. The CT scanner at [facility] is accredited by the [employer] and the scans are performed using dose optimization techniques as appropriate to a performed exam including Automatic Exposure control.
--- NOTE | 2018-12-20 10:00 | NUR ---
NURSE NOTES: dr Rodriguez phoned due to ultrasound report that pt ultrasound was not clear in the ER due to fecal build up gave orders for suppository x 1 for procedure
--- NOTE | 2018-12-20 10:10 | NUR ---
NURSE NOTES: Pt refused suppository Ultrasound currently being rendered
--- NOTE | 2018-12-20 11:29 | Diagnostic Imaging Report ---
Indication:Abdominal pain Technique: Grayscale and duplex Doppler imaging of the abdomen performed. Comparison: None Findings: The liver is unremarkable. The gallbladder is unremarkable. The demonstrated part of the pancreas, aorta and IVC show no abnormalities. Both kidneys appear unremarkable. The spleen is normal in size. There is no biliary ductal dilatation identified. Doppler evaluation of the main portal vein shows patency. CBD is 3 mm. There is no ascites. No hydronephrosis seen. Impression: No acute findings.
--- NOTE | 2018-12-20 11:42 | Diagnostic Imaging Report ---
Indication:Lower abdominal and pelvic pain Technique: Grayscale and duplex Doppler imaging of the pelvis performed utilizing a transabdominal and endovaginal scan. Comparison: 06/11/2018 pelvic ultrasound Findings: The uterus appears normal. Endometrium is about 9 to 10 mm in thickness. A small amount of free fluid is present. There is a large left ovarian mass 6 x 4 cm that is complex in appearance with fluid fluid levels, specular echoes, shadowing consistent with dermoid tumor. This had a similar appearance on the previous examination. There is a right ovarian complex mass consistent with dermoid measuring about 3 to 4 cm which appears similarly on the previous study. Uterus measures 7 x 3.6 x 3.4 cm. IMPRESSION: Bilateral ovarian dermoids as described above. No change
[2018-12-20 12:00] VITALS: BP 99/59
--- NOTE | 2018-12-20 12:22 | GI Initial Consult Note ---
History of Present Illness General Date patient seen: Dec 20, 2018 Time patient seen: 12:15 Reason for Hospitalization: Abdominal Pain Referring physician: KELLEY MEJIA Reason for Consultation: ABDOMINAL PAIN Present Illness HPI 18-year-old female turns to the emergency department complaining of 9 out of 10 in severity lower abdominal pain since midnight last night. Patient was seen here about 1 AM had labs done and was given several rounds of IV pain medication as well as antibiotics before being discharged. Patient states that her pain has worsened and is not controlled with the prescribed prescriptions. Patient denies fevers or chills she reports some abdominal fullness/bloating. Patient denies constipation or diarrhea, vaginal bleeding or discharge, nausea or vomiting. Patient reports history of cysts in the past but states that this is more painful than what she has experienced in the past. Patient reports that she has a primary care provider however she has never gotten a submarine cable equipment technician : Referral that has not been evaluated for her repeat ED visits for ovarian cysts. She denies or suspicion of STI. No relieving factors at this time she states that pain is exacerbated upon pressing on her stomach or certain movements. GI consulted for abdominal pain. Patient seen, awake alert and oriented x4 no apparent distress. Previous reports of severe abdominal pain which was not controlled by medication. Negative abdominal ultrasound showed no acute process. Abdominal pelvic CT noted that the patient had bilateral ovarian dermoid tumors approximately 2.5 cm and 4 cm. GI system unremarkable. No history of endoscopic colonoscopy. Home Meds Active Scripts Ibuprofen* (MOTRIN*) 600 Mg Tablet, 600 MG ORAL THREE TIMES A DAY, #30 TAB 0 Refills Prov:Donato Hercules MD 12/19/18 Cephalexin* (KEFLEX*) 500 Mg Capsule, 500 MG ORAL TID, #21 CAP Prov:Donato Hercules MD 12/19/18 Hydrocodone/Acetaminophen 5-325* (HYDROCODONE/ACETAMINOPHEN 5-325*) 1 Each Tablet, 1 TAB ORAL Q6H PRN for For Pain, #15 TAB 0 Refills Prov:Donato Hercules MD 12/19/18 Discontinued Scripts Hydrocodone Bit/Acetaminophen 10-325* (NORCO 10-325*) 1 Each Tablet, 1 TAB ORAL Q6H PRN for For Pain, #10 TAB 0 Refills PRN PAIN Prov:Cosmo Vogel MD 06/11/18 Ibuprofen* (MOTRIN*) 600 Mg Tablet, 600 MG ORAL THREE TIMES A DAY, #30 TAB 0 Refills Prov:Donato Hercules MD 05/30/18 Cephalexin* (KEFLEX*) 500 Mg Capsule, 500 MG ORAL TID, #21 CAP Prov:Donato Hercules MD 05/30/18 Hydrocodone/Acetaminophen 5-325* (HYDROCODONE/ACETAMINOPHEN 5-325*) 1 Each Tablet, 1 TAB ORAL Q6H PRN for For Pain, #10 TAB 0 Refills Prov:Donato Hercules MD 05/30/18 Med list reviewed/reconciled: Yes Allergies: Coded Allergies: No Known Allergies (Unverified , 03/10/16) Patient History History Provided By: Patient, Medical Record PMH Narrative Past Medical History: see triage record Past Surgical History: none Pertinent Family History: none Last Menstrual Period: Nov 18 2018 Now: No Reviewed Nursing Documentation: PMH: Agreed; PSxH: Agreed Nursing Documentation-PMH Hx Neurological Problems: Yes - migraine Hx Seizures: Yes Social History: Denies: smoking, alcohol use, drug use, other Review of Systems All Other Systems: negative except mentioned in HPI Physical Exam Vital Signs Date Time Temp Pulse Resp B/P (MAP) Pulse Ox O2 Delivery O2 Flow Rate FiO2 12/19/18 19:47 98.1 63 19 105/66 97 Room Air Sp02 EP Interpretation: reviewed, normal Labs Laboratory Tests Test 12/19/18 21:00 12/20/18 05:10 White Blood Count 6.4 K/UL (4.8-10.8) # 5.2 K/UL (4.8-10.8) Red Blood Count 3.93 M/UL (4.20-5.40) L 3.67 M/UL (4.20-5.40) L Hemoglobin 12.5 G/DL (12.0-16.0) 11.6 G/DL (12.0-16.0) L Hematocrit 37.2 % (37.0-47.0) 35.0 % (37.0-47.0) L Mean Corpuscular Volume 95 FL (80-99) 95 FL (80-99) Mean Corpuscular Hemoglobin 31.7 PG (27.0-31.0) H 31.7 PG (27.0-31.0) H Mean Corpuscular Hemoglobin Concent 33.5 G/DL (32.0-36.0) 33.3 G/DL (32.0-36.0) Red Cell Distribution Width 11.0 % (11.6-14.8) L 11.3 % (11.6-14.8) L Platelet Count 128 K/UL (150-450) L 129 K/UL (150-450) L Mean Platelet Volume 11.0 FL (6.5-10.1) H 11.6 FL (6.5-10.1) H Neutrophils (%) (Auto) 75.3 % (45.0-75.0) H 70.4 % (45.0-75.0) Lymphocytes (%) (Auto) 14.8 % (20.0-45.0) L 18.5 % (20.0-45.0) L Monocytes (%) (Auto) 8.4 % (1.0-10.0) 9.6 % (1.0-10.0) Eosinophils (%) (Auto) 1.1 % (0.0-3.0) 1.3 % (0.0-3.0) Basophils (%) (Auto) 0.4 % (0.0-2.0) 0.2 % (0.0-2.0) Activated Partial Thromboplast Time 31 SEC (23-33) Sodium Level 137 MMOL/L (136-145) Potassium Level 3.7 MMOL/L (3.5-5.1) Chloride Level 105 MMOL/L (98-107) Carbon Dioxide Level 21 MMOL/L (21-32) Anion Gap 11 mmol/L (5-15) Blood Urea Nitrogen 9 mg/dL (7-18) Creatinine 0.7 MG/DL (0.55-1.30) Estimat Glomerular Filtration Rate > 60 mL/min (>60) Glucose Level 82 MG/DL (74-106) Calcium Level 8.1 MG/DL (8.5-10.1) L Total Bilirubin 0.7 MG/DL (0.2-1.0) Aspartate Amino Transf (AST/SGOT) 14 U/L (15-37) L Alanine Aminotransferase (ALT/SGPT) 20 U/L (12-78) Alkaline Phosphatase 42 U/L (46-116) L Total Protein 5.7 G/DL (6.4-8.2) L Albumin 2.9 G/DL (3.4-5.0) L Globulin 2.8 g/dL Albumin/Globulin Ratio 1.0 (1.0-2.7) Amylase Level 42 U/L (25-115) Lipase 98 U/L (73-393) General Appearance: well appearing, no apparent distress, alert Head: normocephalic EENT: PERRL/EOMI, normal ENT inspection Neck: supple Respiratory: normal breath sounds, no respiratory distress Cardiovascular: normal rate Gastrointestinal: normal inspection, non tender, soft, normal bowel sounds, non -distended Rectal: deferred Genitourinary: no CVA tenderness Musculoskeletal: normal inspection, back normal Neurologic: normal inspection, alert, oriented x3, responsive Psychiatric: normal inspection, judgement/insight normal, memory normal Skin: normal inspection, normal color, no rash, warm/dry, palpation normal, well hydrated Lymphatic: normal inspection, no adenopathy Current Medications Current Medications Medications (Trade) Dose Ordered Sig/Ashlyn Route PRN Reason Start Time Stop Time Status Last Admin Dose Admin Acetaminophen (Tylenol) 650 mg Q4H PRN ORAL fever 12/19/18 23:15 01/18/19 23:14 Al Hydroxide/Mg Hydroxide (Mylanta II) 30 ml Q6H PRN ORAL dyspepsia 12/19/18 23:15 01/18/19 23:14 Dextrose (Dextrose 50%) 25 ml Q30M PRN IV Hypoglycemia 12/19/18 23:15 01/18/19 23:14 Dextrose (Dextrose 50%) 50 ml Q30M PRN IV Hypoglycemia 12/19/18 23:15 01/18/19 23:14 Dextrose/Sodium Chloride 1,000 ml @ 75 mls/hr [id number] IV 12/19/18 23:03 01/18/19 23:02 12/19/18 23:59 Diphenhydramine HCl (Benadryl) 25 mg Q6H PRN ORAL Itching/Pruritis 12/19/18 23:15 01/18/19 23:14 Heparin Sodium (Porcine) (Heparin 5000 units/ml) 5,000 units EVERY 12 HOURS SUBQ 12/20/18 09:00 01/19/19 08:59 Lorazepam (Ativan 2mg/ml 1ml) 1 mg Q4H PRN IV agitation 12/19/18 23:15 12/26/18 23:14 Metoclopramide HCl (Reglan) 10 mg Q6H PRN IVP servere jewelsea 12/19/18 23:15 01/18/19 23:14 12/20/18 01:13 Morphine Sulfate (Morphine Sulfate) 2 mg Q4H PRN IVP severe Pain (Pain Scale 7-10) 12/19/18 23:15 12/26/18 23:14 12/20/18 08:48 Nitroglycerin (Ntg) 0.4 mg Q5M X 3 DOSES PRN SL Prn Chest Pain 12/19/18 23:15 01/18/19 23:14 Ondansetron HCl (Zofran) 4 mg Q6H PRN IVP Nausea & Vomiting 12/19/18 23:15 01/18/19 23:14 Pantoprazole (Protonix) 40 mg DAILY IV 12/20/18 09:00 01/19/19 08:59 12/20/18 08:47 Polyethylene Glycol (Miralax) 17 gm HSPRN PRN ORAL Constipation 12/19/18 23:15 01/18/19 23:14 Promethazine HCl 12.5 mg/Sodium Chloride 55.5 ml @ 110 mls/hr Q6H PRN IV Refractory N/V 12/19/18 23:15 01/18/19 23:14 Promethazine HCl 25 mg/Sodium Chloride 56 ml @ 110 mls/hr Q6H PRN IV Refractory N/V 12/19/18 23:15 01/18/19 23:14 Temazepam (Restoril) 15 mg HSPRN PRN ORAL Insomnia 12/19/18 23:15 12/26/18 23:14 GI: Plan Problems: (1) Normocytic anemia (2) Intractable abdominal pain (3) Dermoid cyst of both ovaries Plan Abdominal ultrasound reviewed, negative Abdominal pelvis CT reviewed, noted with bilateral dermoid tumors Hyperchromic anemia Follow-up with COMPLIANCE REVIEW SPECIALIST recommendations No plans for GI procedure, symptomatic treatment Pain management Maintain n.p.o. until seen by COMPLIANCE REVIEW SPECIALIST Connie as needed anemia work up OB stool r/o GI bleed monitor H&H, prn transfusions bowel regime ppi fu labs Discussed with Dr. Mai. Thank you for this patient referral, we will follow. The patient was seen and examined at bedside and all new and available data was reviewed in the patients chart. I agree with the above findings, impression and plan. (Patient seen earlier today. Signature stamp does not reflect patient encounter time.). - MD Delisa Green AnhMiguel TAYLOR Dec 20, 2018 12:22
[2018-12-20] MEDS: D5 1/2NS 1,000 ML IV SCH (12:53)
--- NOTE | 2018-12-20 14:36 | Consultation ---
History of Present Illness General Date patient seen: Dec 20, 2018 Chief Complaint: Abdominal Pain Referring physician: KELLEY MEJIA Reason for Consultation: inpatient management Present Illness HPI 18-year-old female turns to the emergency department complaining of 9 out of 10 in severity lower abdominal pain. Patient denied fevers or chills she reports some abdominal fullness/bloating. Patient denies constipation or diarrhea, vaginal bleeding or discharge, nausea or vomiting. The Ct of abdomen showed bilateral cysts. She is admitted for further work up. Allergies: Coded Allergies: No Known Allergies (Unverified , 03/10/16) Medication History Scheduled Cephalexin* (Keflex*), 500 MG ORAL TID Ibuprofen* (Motrin*), 600 MG ORAL THREE TIMES A DAY Scheduled PRN Hydrocodone/Acetaminophen 5-325* (Hydrocodone/Acetaminophen 5-325*), 1 TAB ORAL Q6H PRN for For Pain Discontinued Medications Cephalexin* (Keflex*), 500 MG ORAL TID Discontinued Reason: Therapy completed Hydrocodone Bit/Acetaminophen 10-325* ([place] 10-325*), 1 TAB ORAL Q6H PRN for For Pain Discontinued Reason: Therapy completed Hydrocodone/Acetaminophen 5-325* (Hydrocodone/Acetaminophen 5-325*), 1 TAB ORAL Q6H PRN for For Pain Discontinued Reason: Therapy completed Ibuprofen* (Motrin*), 600 MG ORAL THREE TIMES A DAY Discontinued Reason: Therapy completed Patient History Healthcare decision maker Resuscitation status Full Code Advanced Directive on File No Past Medical/Surgical History Past Medical/Surgical History: (1) Hemorrhagic ovarian cyst (2) Normocytic anemia Review of Systems All Other Systems: negative except mentioned in HPI Physical Exam General Appearance: WD/WN, no apparent distress, cachetic Lines, tubes and drains: peripheral HEENT: normocephalic, atraumatic Neck: non-tender Respiratory/Chest: chest wall non-tender Breasts: no masses Cardiovascular/Chest: no JVD Abdomen: normal bowel sounds Extremities: normal range of motion Skin Exam: normal pigmentation Last 24 Hour Vital Signs Date Time Temp Pulse Resp B/P (MAP) Pulse Ox O2 Delivery O2 Flow Rate FiO2 12/20/18 09:00 Room Air 12/20/18 08:00 97.8 68 16 97/60 (72) 97 12/20/18 04:00 98.2 71 18 102/45 (64) 12/20/18 00:14 Room Air 12/19/18 23:31 98.5 86 16 122/64 98 Room Air 12/19/18 22:38 98.5 12/19/18 22:38 98.5 12/19/18 20:55 98.1 84 16 120/67 100 Room Air 12/19/18 19:55 98.1 83 19 105/66 97 Room Air 12/19/18 19:55 63 19 Room Air 12/19/18 19:47 98.1 63 19 105/66 97 Room Air Intake and Output 12/19/18 12/20/18 18:59 06:59 Intake Total 255 ml Output Total 0 ml Balance 255 ml Intake IV Total 255 ml Output Stool Total 0 ml # Voids 1 Laboratory Tests Test 12/19/18 21:00 12/20/18 05:10 White Blood Count 6.4 K/UL (4.8-10.8) # 5.2 K/UL (4.8-10.8) Red Blood Count 3.93 M/UL (4.20-5.40) L 3.67 M/UL (4.20-5.40) L Hemoglobin 12.5 G/DL (12.0-16.0) 11.6 G/DL (12.0-16.0) L Hematocrit 37.2 % (37.0-47.0) 35.0 % (37.0-47.0) L Mean Corpuscular Volume 95 FL (80-99) 95 FL (80-99) Mean Corpuscular Hemoglobin 31.7 PG (27.0-31.0) H 31.7 PG (27.0-31.0) H Mean Corpuscular Hemoglobin Concent 33.5 G/DL (32.0-36.0) 33.3 G/DL (32.0-36.0) Red Cell Distribution Width 11.0 % (11.6-14.8) L 11.3 % (11.6-14.8) L Platelet Count 128 K/UL (150-450) L 129 K/UL (150-450) L Mean Platelet Volume 11.0 FL (6.5-10.1) H 11.6 FL (6.5-10.1) H Neutrophils (%) (Auto) 75.3 % (45.0-75.0) H 70.4 % (45.0-75.0) Lymphocytes (%) (Auto) 14.8 % (20.0-45.0) L 18.5 % (20.0-45.0) L Monocytes (%) (Auto) 8.4 % (1.0-10.0) 9.6 % (1.0-10.0) Eosinophils (%) (Auto) 1.1 % (0.0-3.0) 1.3 % (0.0-3.0) Basophils (%) (Auto) 0.4 % (0.0-2.0) 0.2 % (0.0-2.0) Activated Partial Thromboplast Time 31 SEC (23-33) Sodium Level 137 MMOL/L (136-145) Potassium Level 3.7 MMOL/L (3.5-5.1) Chloride Level 105 MMOL/L (98-107) Carbon Dioxide Level 21 MMOL/L (21-32) Anion Gap 11 mmol/L (5-15) Blood Urea Nitrogen 9 mg/dL (7-18) Creatinine 0.7 MG/DL (0.55-1.30) Estimat Glomerular Filtration Rate > 60 mL/min (>60) Glucose Level 82 MG/DL (74-106) Calcium Level 8.1 MG/DL (8.5-10.1) L Total Bilirubin 0.7 MG/DL (0.2-1.0) Aspartate Amino Transf (AST/SGOT) 14 U/L (15-37) L Alanine Aminotransferase (ALT/SGPT) 20 U/L (12-78) Alkaline Phosphatase 42 U/L (46-116) L Total Protein 5.7 G/DL (6.4-8.2) L Albumin 2.9 G/DL (3.4-5.0) L Globulin 2.8 g/dL Albumin/Globulin Ratio 1.0 (1.0-2.7) Amylase Level 42 U/L (25-115) Lipase 98 U/L (73-393) Height (Feet): 5 Height (Inches): 2.00 Weight (Pounds): 140 Medications Current Medications Medications (Trade) Dose Ordered Sig/Ashlyn Route PRN Reason Start Time Stop Time Status Last Admin Dose Admin Acetaminophen (Tylenol) 650 mg Q4H PRN ORAL fever 12/19/18 23:15 01/18/19 23:14 Al Hydroxide/Mg Hydroxide (Mylanta II) 30 ml Q6H PRN ORAL dyspepsia 12/19/18 23:15 01/18/19 23:14 Dextrose (Dextrose 50%) 25 ml Q30M PRN IV Hypoglycemia 12/19/18 23:15 01/18/19 23:14 Dextrose (Dextrose 50%) 50 ml Q30M PRN IV Hypoglycemia 12/19/18 23:15 01/18/19 23:14 Dextrose/Sodium Chloride 1,000 ml @ 75 mls/hr [id number] IV 12/19/18 23:03 01/18/19 23:02 12/20/18 12:53 Diphenhydramine HCl (Benadryl) 25 mg Q6H PRN ORAL Itching/Pruritis 12/19/18 23:15 01/18/19 23:14 Heparin Sodium (Porcine) (Heparin 5000 units/ml) 5,000 units EVERY 12 HOURS SUBQ 12/20/18 09:00 01/19/19 08:59 Lorazepam (Ativan 2mg/ml 1ml) 1 mg Q4H PRN IV agitation 12/19/18 23:15 12/26/18 23:14 Metoclopramide HCl (Reglan) 10 mg Q6H PRN IVP servere nauasea 12/19/18 23:15 01/18/19 23:14 12/20/18 01:13 Morphine Sulfate (Morphine Sulfate) 2 mg Q4H PRN IVP severe Pain (Pain Scale 7-10) 12/19/18 23:15 12/26/18 23:14 12/20/18 12:53 Nitroglycerin (Ntg) 0.4 mg Q5M X 3 DOSES PRN SL Prn Chest Pain 12/19/18 23:15 01/18/19 23:14 Ondansetron HCl (Zofran) 4 mg Q6H PRN IVP Nausea & Vomiting 12/19/18 23:15 01/18/19 23:14 Pantoprazole (Protonix) 40 mg DAILY IV 12/20/18 09:00 01/19/19 08:59 12/20/18 08:47 Polyethylene Glycol (Miralax) 17 gm HSPRN PRN ORAL Constipation 12/19/18 23:15 01/18/19 23:14 Promethazine HCl 12.5 mg/Sodium Chloride 55.5 ml @ 110 mls/hr Q6H PRN IV Refractory N/V 12/19/18 23:15 01/18/19 23:14 Promethazine HCl 25 mg/Sodium Chloride 56 ml @ 110 mls/hr Q6H PRN IV Refractory N/V 12/19/18 23:15 01/18/19 23:14 Temazepam (Restoril) 15 mg HSPRN PRN ORAL Insomnia 12/19/18 23:15 12/26/18 23:14 Assessment/Plan Problem List: (1) Intractable abdominal pain ICD Codes: R10.9 - Unspecified abdominal pain SNOMED: 12900576, 909835694 (2) Dermoid cyst of both ovaries ICD Codes: D27.0 - Benign neoplasm of right ovary; D27.1 - Benign neoplasm of left ovary SNOMED: 103834579 (3) Normocytic anemia ICD Codes: D64.9 - Anemia, unspecified SNOMED: 976090919 Assessment/Plan NPO IV fluids 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
--- NOTE | 2018-12-20 16:10 | NUR ---
NURSE NOTES: Dr Mendez phoned to report pt pain states that it is constant . Dr Mendez gave okay for Morphine 4 mg for severe pain q 4 hours
[2018-12-20] MEDS: Morphine Sulfate 4mg/ml Inj (IV USE ONLY) IVP PRN ×2 (16:47→21:48)
--- NOTE | 2018-12-20 17:57 | NUR ---
NURSE NOTES: is currently here gave orders for Toradol 30 mg q6 hours scheduled and to dc heparin change to SCd for embolism prevention. DC NPO status change to regular diet
--- NOTE | 2018-12-20 18:04 | NUR ---
NURSE NOTES: Dietary phoned for pt to have regular diet ,. pt has not had a bm upon this witting
--- NOTE | 2018-12-20 18:11 | Consultation ---
Consult Note Consult Note GYNECOLOGY CONSULT NOTE CC: Generalized abdominal pain HPI: Patient is a 18yo who was admitted with reported 9/10 generalized abdominal pain. She has had a known dermoid cyst (seen on US in 2016) and reports a history of "cyst problems" since 12 years of age. She states that she was seen here on Sunday night and received IV pain medications and antibiotics and was sent home with PO [place]. Patient states that "nothing works but morphine" and was readmitted with intractable pain. She still is reporting severe pain, however is calm and appears comfortable at the time of the interview. Denies nausea, vomiting, fever, chills, chest pain, shortness of breath, vaginal bleeding, or abnormal discharge. PMH: Denies hx of asthma, DM, HTN, or thyroid dz PSH: Surgical in 2016 Meds: [place] OCPs, [place] (recently prescribed) Allergies: NKDA OBHx: - TAB x 1 GYNHx: LMP 11/18/18. Hx of irregular menses, with oligomenorrhea as long as 1 year. Regular menses on OCPs. Started new OCPs pack on Sunday. Hx of cysts. Has been instructed to follow up with [employer] and has not sought care with Gynecology. No hx of Pap (per ASCCP guidelines not indicated until 21yo). SocHx: Lives with boyfriend. Fractured relationship with parents. Denies T/E/D FamHx: No hx of [employer] malignancy. +Hx of cardiac disease on father's side. +Hx of cysts and irregular menses on mother's side as well as sisters. Vitals: Tmax 98.5, BP 102/45, P 71, RR 18, O2 98% RA Exam: Gen: NAD Neuro: Intact grossly HEENT: OP clear, MMM Neck: No thyromegaly CV: No tachycardia Pulm: No increased work of breathing Abd: Soft, intermittently tender throughout, no point tenderness, no rebound, no guarding. Patient is distractible and exam does not elicit pain in the same spot consistently. Pelvic: NEFG, no masses or lesions. No peritoneal tenderness, no CMT. Uterus normal size, mobile, regular shape. Gepb-[id number]-[id number] TTP in left adnexa, mild TTP in right adnexa Ext: No TTP Skin: Warm, dry Labs: Labs Test 12/19/18 21:00 12/20/18 05:10 White Blood Count 6.4 K/UL (4.8-10.8) 5.2 K/UL (4.8-10.8) Red Blood Count 3.93 M/UL (4.20-5.40) 3.67 M/UL (4.20-5.40) Hemoglobin 12.5 G/DL (12.0-16.0) 11.6 G/DL (12.0-16.0) Hematocrit 37.2 % (37.0-47.0) 35.0 % (37.0-47.0) Mean Corpuscular Volume 95 FL (80-99) 95 FL (80-99) Mean Corpuscular Hemoglobin 31.7 PG (27.0-31.0) 31.7 PG (27.0-31.0) Mean Corpuscular Hemoglobin Concent 33.5 G/DL (32.0-36.0) 33.3 G/DL (32.0-36.0) Red Cell Distribution Width 11.0 % (11.6-14.8) 11.3 % (11.6-14.8) Platelet Count 128 K/UL (150-450) 129 K/UL (150-450) Mean Platelet Volume 11.0 FL (6.5-10.1) 11.6 FL (6.5-10.1) Neutrophils (%) (Auto) 75.3 % (45.0-75.0) 70.4 % (45.0-75.0) Lymphocytes (%) (Auto) 14.8 % (20.0-45.0) 18.5 % (20.0-45.0) Monocytes (%) (Auto) 8.4 % (1.0-10.0) 9.6 % (1.0-10.0) Eosinophils (%) (Auto) 1.1 % (0.0-3.0) 1.3 % (0.0-3.0) Basophils (%) (Auto) 0.4 % (0.0-2.0) 0.2 % (0.0-2.0) Activated Partial Thromboplast Time 31 SEC (23-33) Sodium Level 137 MMOL/L (136-145) Potassium Level 3.7 MMOL/L (3.5-5.1) Chloride Level 105 MMOL/L (98-107) Carbon Dioxide Level 21 MMOL/L (21-32) Anion Gap 11 mmol/L (5-15) Blood Urea Nitrogen 9 mg/dL (7-18) Creatinine 0.7 MG/DL (0.55-1.30) Estimat Glomerular Filtration Rate > 60 mL/min (>60) Glucose Level 82 MG/DL (74-106) Calcium Level 8.1 MG/DL (8.5-10.1) Total Bilirubin 0.7 MG/DL (0.2-1.0) Aspartate Amino Transf (AST/SGOT) 14 U/L (15-37) Alanine Aminotransferase (ALT/SGPT) 20 U/L (12-78) Alkaline Phosphatase 42 U/L (46-116) Total Protein 5.7 G/DL (6.4-8.2) Albumin 2.9 G/DL (3.4-5.0) Globulin 2.8 g/dL Albumin/Globulin Ratio 1.0 (1.0-2.7) Amylase Level 42 U/L (25-115) Lipase 98 U/L (73-393) Imaging: Comparison: 06/11/2018 pelvic ultrasound Findings: The uterus appears normal. Endometrium is about 9 to 10 mm in thickness. A small amount of free fluid is present. There is a large left ovarian mass 6 x 4 cm that is complex in appearance with fluid fluid levels, specular echoes, shadowing consistent with dermoid tumor. This had a similar appearance on the previous examination. There is a right ovarian complex mass consistent with dermoid measuring about 3 to 4 cm which appears similarly on the previous study. Uterus measures 7 x 3.6 x 3.4 cm. IMPRESSION: Bilateral ovarian dermoids as described above. No change Assessment/Plan 18yo with bilateral adnexal cysts and generalized abdominal pain - Patient's overall pain is not consistent with dermoid cysts - she is tender in her upper abdomen as well as her lower abdomen, which is unlikely due to dermoids - Clinical picture not consistent with ovarian torsion, however would recommend that current ultrasound report be amended to include findings of Doppler study - no comment on flow to the ovaries was made. Radiology has been contacted to amend the report. - Unclear etiology of her pain, DDx includes GI causes or ruptured ovarian cyst , however only a small amount of free fluid in the pelvis on ultrasound thus cyst rupture not as likely - While patient is in some pain, she is in no acute distress and was laying in bed on her phone and was distractible during her exam, and was sitting comfortably upright in bed and eating her dinner. Emergent surgical intervention not recommended at this time. - Recommend outpatient management and follow up with a Gyneologist, to arrange for additional imaging and likely surgical management - Recommend advancing diet and starting Toradol 30mg IV q6h scheduled. If pain can be managed with Toradol, consider discontinuing Morphine. - Continue OCPs, d/c heparin, order SCDs. Findings and recommendations relayed to Dr. Millan. Thank you for this interesting consult. Signed: MD Marilia Manning Carla M.D. Dec 20, 2018 18:11
--- NOTE | 2018-12-20 18:22 | History & Physical ---
History and Physical History & Physicial Dictated for Int Med-Dr Rodriguez no. [id number]. Flex Millan MD Dec 20, 2018 18:22
[2018-12-20] MEDS: Ketorolac 30mg Inj IV SCH (18:24)
[2018-12-20] MEDS ORDERED: Morphine Sulfate 2mg/ml Inj(IV/IM USE ONLY) IVP PRN (19:15)
[2018-12-20 20:00] VITALS: BP 120/86
--- NOTE | 2018-12-20 20:10 | NUR ---
NURSE NOTES: Radiology phoned with amendment to ultrasound results results show that there is no evidence uterine torsion. Attempted to notify Dr Johnson at . phone does not accommodate phone messages. WILL ENDORSE TO ONCOMING NURSE
--- NOTE | 2018-12-20 20:24 | NUR ---
NURSE NOTES: PT SITTING IN BED FAMILY MEMBER AT BEDSIDE. CALL LIGHT IN REACH . REMINDED TO CALL NURSE FOR STOOL
--- NOTE | 2018-12-20 20:26 | NUR ---
HAND-OFF: Report given to CHIDI MCFARLANE ENDORSED TO FOLLOW WITH DR KELLY TO STAFF FOR RESULTS OF ULTRASOUND.
--- NOTE | 2018-12-20 20:31 | NUR ---
NURSE NOTES: ENDORSED TO ONCOMING NURSE THAT DR FERRELL DOES NOT ACCEPT PT INSURANCE NEEDS REFERRAL TO [facility]
--- NOTE | 2018-12-20 21:30 | NUR ---
NURSE NOTES: Patient is aaox4. sitting up in bed, talkative. Morphine IVP given for pain of 8/10. IV site intact and patent. Needs attended to, bed low, call light within reach.
[2018-12-21] VITALS: BP 115/67
[2018-12-21] MEDS: Ketorolac 30mg Inj IV SCH ×3 (01:02→12:00)
--- NOTE | 2018-12-21 02:00 | History and Physical Report ---
DATE OF ADMISSION: 12/19/2018 CHIEF COMPLAINT: The patient is a 18-year-old white female, who presents with chief complaint of lower abdominal pain, nausea, and vomiting. HISTORY OF PRESENT ILLNESS: The patient has a history of chronic abdominal pain. The patient states history of present illness began on Sunday. The patient began to experience bilateral lower quadrant pain. This was associated with nausea and vomiting. The patient was unable to tolerate solids. The patient presented to [facility]. A CT scan of the abdomen revealed bilateral ovarian dermoid tumors. The patient is admitted for abdominal pain, nausea, vomiting, and evaluation of bilateral ovarian dermoid tumors. REVIEW OF SYSTEMS: CONSTITUTIONAL: The patient denies weight loss or weight gain. The patient denies fevers or chills. HEENT: The patient denies ear or throat pain. The patient denies headache. CARDIOVASCULAR: The patient denies palpitations or chest pain. CHEST: The patient denies wheeze or shortness of breath. ABDOMEN: The patient complains of lower abdominal pain as above. The patient complains of nausea and vomiting. The patient denies constipation. GENITOURINARY: The patient denies dysuria or increased frequency of urination. NEUROMUSCULAR: The patient denies seizures or generalized weakness. PAST MEDICAL HISTORY: The patient denies. PAST SURGICAL HISTORY: The patient denies. CURRENT MEDICATIONS: The patient denies. ALLERGIES: No known drug allergies. 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 The patient denied tobacco or alcohol use. PHYSICAL EXAMINATION: VITAL SIGNS: Temperature 98.5 degrees, respirations 16, pulse 86, and blood pressure 122/64. GENERAL: The patient is well-nourished and well-developed white female, in no apparent distress. HEENT: Eyes, pupils are equal and responsive to light and accommodation. Extraocular movements are intact. NECK: Supple without lymphadenopathy. CHEST: Lungs are clear to auscultation bilaterally without wheezes or rales. CARDIOVASCULAR: Regular rhythm and rate. S1 and S2 are normal without murmurs, rubs, or gallops. ABDOMEN: Soft and tender to palpation in the bilateral lower quadrant without rebound or guarding noted. No evidence of hepatosplenomegaly, rebound, or guarding noted. EXTREMITIES: Negative for clubbing, cyanosis, or edema. RECTAL: Refused. GENITAL: Refused. NEUROLOGICAL: Cranial nerves II through XII are grossly intact without focal deficits. Motor strength is 5/5 bilaterally. Deep tendon reflexes are 2+ plantar. LABORATORY AND DIAGNOSTIC DATA: Laboratory studies, WBC 6.4, hemoglobin 12.5, hematocrit 37.3, and platelets 128,000. Sodium 137, potassium 3.7, chloride 105, CO2 21, BUN 9, creatinine 0.7, and glucose 82. CT scan of the abdomen revealed bilateral ovarian dermoid tumors. ASSESSMENT: This is a 18-year-old white female with, 1. Bilateral lower quadrant abdominal pain. 2. Bilateral dermoid ovarian tumors. 3. Nausea and vomiting. TREATMENT: Abdominal pain/bilateral ovarian dermoid tumors. A Gynecology consultation was obtained with Dr. Capellan. We will follow recommendations of Gynecology. The patient is currently tolerating a clear liquid diet. The patient will be offered Zofran p.r.n. for nausea and vomiting. A Gastroenterology consultation has been obtained with Dr. Alex Mai. Flex Millan M.D. DR: CHARMAINE JOB#: [id number] CC:
[2018-12-21 04:00] VITALS: BP 101/62
[2018-12-21] MEDS: Morphine Sulfate 4mg/ml Inj (IV USE ONLY) IVP PRN (04:46)
[2018-12-21 08:00] VITALS: BP 100/49
--- NOTE | 2018-12-21 08:00 | NUR ---
NURSE NOTES: received report from Dee Dee MCFARLANE. pt a/a/o x4 laying in bed with no signs of distress or other issues at this time. pt in a regular diet tolerating well with no n/v. I on the Left AC heplock. call light within reach, bed in lowest position. side rales up x2. I will f/u as needed. - Per Report Dr. Capellan will not be able to continue seeing the pt due to INS issues.
--- NOTE | 2018-12-21 08:10 | NUR ---
HAND-OFF: Report given to MAEVE Galaviz. Patient stable.
[2018-12-21 08:43] LABS: BASOPHILS % (AUTO) 0.4 % (0.0-2.0); EOSINOPHILS % (AUTO) 2.2 % (0.0-3.0); HEMOGLOBIN 12.4 G/DL (12.0-16.0); LYMPHOCYTES % (AUTO) 29.1 % (20.0-45.0); MEAN CORPUSCULAR VOLUME 95 FL (80-99); MONOCYTES % (AUTO) 13.2 % (1.0-10.0); NEUTROPHILS % (AUTO) 55.2 % (45.0-75.0); PLATELET COUNT 158 K/UL (150-450); RED CELL DISTRIBUTION WIDTH 11.4 % (11.6-14.8); WHITE BLOOD COUNT 5.1 K/UL (4.8-10.8)
--- NOTE | 2018-12-21 09:09 | General Progress Note ---
Assessment/Plan Problem List: (1) Dermoid cyst of both ovaries ICD Codes: D27.0 - Benign neoplasm of right ovary; D27.1 - Benign neoplasm of left ovary SNOMED: 613239716 (2) Intractable abdominal pain ICD Codes: R10.9 - Unspecified abdominal pain SNOMED: 25129139, 438483707 Assessment/Plan ? cause for abd pain since age 12!! asking for pain meds on the dot per nurses ? pain medication seeking no alarming S&S neg abd CT and us for an intra abd pathology bowel regimen ok to dc GI stand point Subjective ROS Limited/Unobtainable: Yes Allergies: Coded Allergies: No Known Allergies (Unverified , 03/10/16) Subjective abd pain Objective Last 24 Hour Vital Signs Date Time Temp Pulse Resp B/P (MAP) Pulse Ox O2 Delivery O2 Flow Rate FiO2 12/21/18 08:00 98.1 69 19 100/49 (66) 98 12/21/18 04:00 98.2 70 18 101/62 (75) 98 12/21/18 00:00 99.4 80 17 115/67 (83) 96 12/20/18 21:00 Room Air 12/20/18 20:00 98.7 77 17 120/86 (97) 98 12/20/18 12:00 98.5 66 18 99/59 (72) Intake and Output 12/20/18 12/21/18 19:00 07:00 Intake Total 675 ml 340 ml Output Total 0 ml Balance 675 ml 340 ml Intake Oral 340 ml IV Total 675 ml Output Stool Total 0 ml # Voids 2 Laboratory Tests 12/21/18 07:53: White Blood Count 5.1, Red Blood Count 3.90L, Hemoglobin 12.4, Hematocrit 37.0, Mean Corpuscular Volume 95, Mean Corpuscular Hemoglobin 31.7H, Mean Corpuscular Hemoglobin Concent 33.4, Red Cell Distribution Width 11.4L, Platelet Count 158, Mean Platelet Volume 11.8H, Neutrophils (%) (Auto) 55.2, Lymphocytes (%) (Auto) 29.1, Monocytes (%) (Auto) 13.2H, Eosinophils (%) (Auto) 2.2, Basophils (%) ( Auto) 0.4, Reticulocyte Count [Pending], Prothrombin Time 11.0, Prothromb Time International Ratio 1.0, Activated Partial Thromboplast Time 33, Sodium Level [ Pending], Potassium Level [Pending], Chloride Level [Pending], Carbon Dioxide Level [Pending], Blood Urea Nitrogen [Pending], Creatinine [Pending], Estimat Glomerular Filtration Rate [Pending], Glucose Level [Pending], Calcium Level [ Pending], Iron Level [Pending], Unsaturated Iron Binding [Pending], Ferritin [ Pending], Total Bilirubin [Pending], Aspartate Amino Transf (AST/SGOT) [Pending] , Alanine Aminotransferase (ALT/SGPT) [Pending], Alkaline Phosphatase [Pending] , Total Protein [Pending], Albumin [Pending], Globulin [Pending], Vitamin B12 Level [Pending], Folate [Pending], Thyroid Stimulating Hormone (TSH) [Pending], Free Thyroxine [Pending] Height (Feet): 5 Height (Inches): 2.00 Weight (Pounds): 140 General Appearance: alert EENT: normal ENT inspection Neck: supple Cardiovascular: normal rate Respiratory/Chest: lungs clear Abdomen: normal bowel sounds, non tender, soft Extremities: non-tender Alex Mai MD Dec 21, 2018 09:09
[2018-12-21 09:23] LABS: ALANINE AMINOTRANSFERASE 19 U/L (12-78); ALBUMIN 3.1 G/DL (3.4-5.0); ALKALINE PHOSPHATASE 54 U/L (46-116); ANION GAP 9 mmol/L (5-15); ASPARTATE AMINO TRANSFERASE 18 U/L (15-37); BILIRUBIN,TOTAL 0.3 MG/DL (0.2-1.0); BLOOD UREA NITROGEN 7 mg/dL (7-18); CALCIUM 8.4 MG/DL (8.5-10.1); CARBON DIOXIDE 26 MMOL/L (21-32); CHLORIDE 105 MMOL/L (98-107); CREATININE 0.7 MG/DL (0.55-1.30); FERRITIN 94 NG/ML (8-388); POTASSIUM 3.5 MMOL/L (3.5-5.1); SODIUM 140 MMOL/L (136-145)
[2018-12-21] MEDS: Pantoprazole Inj IV SCH (09:24)
[2018-12-21 09:48] LABS: % IRON SATURATION 11 % (15-50); IRON 23 ug/dL (50-175); TOTAL IRON BINDING CAPACITY 215 ug/dL (250-450)
[2018-12-21 12:00] VITALS: BP 95/56
--- NOTE | 2018-12-21 13:10 | Pulmonology Progress Note ---
Assessment/Plan Problems: (1) Intractable abdominal pain (2) Dermoid cyst of both ovaries (3) Normocytic anemia Assessment/Plan all reviewed HUMAN PERFORMANCE CONSULTANT note appreciated pt eating well dc home Subjective ROS Limited/Unobtainable: No Constitutional: Reports: no symptoms HEENT: Repors: no symptoms Allergies: Coded Allergies: No Known Allergies (Unverified , 03/10/16) Objective Last 24 Hour Vital Signs Date Time Temp Pulse Resp B/P (MAP) Pulse Ox O2 Delivery O2 Flow Rate FiO2 12/21/18 12:30 98.3 12/21/18 12:00 98.3 75 20 95/56 (69) 98 12/21/18 09:00 Room Air 12/21/18 08:00 98.1 69 19 100/49 (66) 98 12/21/18 04:00 98.2 70 18 101/62 (75) 98 12/21/18 00:00 99.4 80 17 115/67 (83) 96 12/20/18 21:00 Room Air 12/20/18 20:00 98.7 77 17 120/86 (97) 98 Intake and Output 12/20/18 12/21/18 18:59 06:59 Intake Total 675 ml 340 ml Output Total 0 ml Balance 675 ml 340 ml Intake Oral 340 ml IV Total 675 ml Output Stool Total 0 ml # Voids 2 Objective General Appearance: cachetic HEENT: normocephalic, atraumatic Respiratory/Chest: chest wall non-tender, normal breath sounds Cardiovascular: normal peripheral pulses, regular rhythm Abdomen: normal bowel sounds, soft, non tender Laboratory Tests 12/21/18 07:53: White Blood Count 5.1, Red Blood Count 3.90L, Hemoglobin 12.4, Hematocrit 37.0, Mean Corpuscular Volume 95, Mean Corpuscular Hemoglobin 31.7H, Mean Corpuscular Hemoglobin Concent 33.4, Red Cell Distribution Width 11.4L, Platelet Count 158, Mean Platelet Volume 11.8H, Neutrophils (%) (Auto) 55.2, Lymphocytes (%) (Auto) 29.1, Monocytes (%) (Auto) 13.2H, Eosinophils (%) (Auto) 2.2, Basophils (%) ( Auto) 0.4, Reticulocyte Count 1.3, Prothrombin Time 11.0, Prothromb Time International Ratio 1.0, Activated Partial Thromboplast Time 33, Sodium Level 140, Potassium Level 3.5, Chloride Level 105, Carbon Dioxide Level 26, Anion Gap 9, Blood Urea Nitrogen 7, Creatinine 0.7, Estimat Glomerular Filtration Rate > 60, Glucose Level 84, Calcium Level 8.4L, Iron Level 23L, Total Iron Binding Capacity 215L, Percent Iron Saturation 11L, Unsaturated Iron Binding 192 , Ferritin 94, Total Bilirubin 0.3, Aspartate Amino Transf (AST/SGOT) 18, Alanine Aminotransferase (ALT/SGPT) 19, Alkaline Phosphatase 54, Total Protein 6.2L, Albumin 3.1L, Globulin 3.1, Albumin/Globulin Ratio 1.0, Vitamin B12 Level 265, Folate 16.1, Thyroid Stimulating Hormone (TSH) 2.434, Free Thyroxine 1.13 Current Medications Medications (Trade) Dose Ordered Sig/Ashlyn Route PRN Reason Start Time Stop Time Status Last Admin Dose Admin Acetaminophen (Tylenol) 650 mg Q4H PRN ORAL fever 12/19/18 23:15 01/18/19 23:14 Al Hydroxide/Mg Hydroxide (Mylanta II) 30 ml Q6H PRN ORAL dyspepsia 12/19/18 23:15 01/18/19 23:14 Dextrose (Dextrose 50%) 25 ml Q30M PRN IV Hypoglycemia 12/19/18 23:15 01/18/19 23:14 Dextrose (Dextrose 50%) 50 ml Q30M PRN IV Hypoglycemia 12/19/18 23:15 01/18/19 23:14 Diphenhydramine HCl (Benadryl) 25 mg Q6H PRN ORAL Itching/Pruritis 12/19/18 23:15 01/18/19 23:14 Ketorolac Tromethamine (Toradol 30mg) 30 mg Q6HR IV 12/20/18 18:00 12/25/18 17:59 12/21/18 12:00 Lorazepam (Ativan 2mg/ml 1ml) 1 mg Q4H PRN IV agitation 12/19/18 23:15 12/26/18 23:14 Metoclopramide HCl (Reglan) 10 mg Q6H PRN IVP servere nauasea 12/19/18 23:15 01/18/19 23:14 12/20/18 01:13 Morphine Sulfate (Morphine Sulfate) 2 mg Q4H PRN IVP Moderate Pain (Pain Scale 4-6) 12/20/18 19:15 12/26/18 23:14 Morphine Sulfate (Morphine Sulfate) 4 mg Q4H PRN IVP Severe Pain (Pain Scale 7-10) 12/20/18 16:45 12/27/18 16:44 12/21/18 04:46 Nitroglycerin (Ntg) 0.4 mg Q5M X 3 DOSES PRN SL Prn Chest Pain 12/19/18 23:15 01/18/19 23:14 Ondansetron HCl (Zofran) 4 mg Q6H PRN IVP Nausea & Vomiting 12/19/18 23:15 01/18/19 23:14 Pantoprazole (Protonix) 40 mg DAILY IV 12/20/18 09:00 01/19/19 08:59 12/21/18 09:24 Polyethylene Glycol (Miralax) 17 gm HSPRN PRN ORAL Constipation 12/19/18 23:15 01/18/19 23:14 12/21/18 01:03 Promethazine HCl 12.5 mg/Sodium Chloride 55.5 ml @ 110 mls/hr Q6H PRN IV Refractory N/V 12/19/18 23:15 01/18/19 23:14 Promethazine HCl 25 mg/Sodium Chloride 56 ml @ 110 mls/hr Q6H PRN IV Refractory N/V 12/19/18 23:15 01/18/19 23:14 Temazepam (Restoril) 15 mg HSPRN PRN ORAL Insomnia 12/19/18 23:15 12/26/18 23:14 Navya Mendez MD Dec 21, 2018 13:10
[2018-12-21] MEDS ORDERED: ACETAMINOPHEN-1 EAC1 ORAL (13:11)
--- NOTE | 2018-12-21 13:57 | NUR ---
NURSE NOTES: Received order to discharge pt home. discharge instructions and belongings given to patient and pt's sister. also given RX fro Tylenol #3, she stated that she will go to her regular pharmacy to fill out prescription. IV removed prior to d/c. pt left the floor via w/c with no signs of distress or other issues at this time. sister at bedside and she will provide transportation. I will f/u as needed.
[2018-12-21] MEDS ORDERED: D5 1/2NS 1000ml IV ONE (13:59)
--- NOTE | 2018-12-21 16:02 | Internal Med Progress Note ---
Subjective Date of Service: Dec 21, 2018 Physician Name Flex Millan Attending Physician Lazaro Rodriguez MD Current Medications Medications (Trade) Dose Ordered Sig/Ashlyn Route PRN Reason Start Time Stop Time Status Last Admin Dose Admin Acetaminophen (Tylenol) 650 mg Q4H PRN ORAL fever 12/19/18 23:15 01/18/19 23:14 Al Hydroxide/Mg Hydroxide (Mylanta II) 30 ml Q6H PRN ORAL dyspepsia 12/19/18 23:15 01/18/19 23:14 Dextrose (Dextrose 50%) 25 ml Q30M PRN IV Hypoglycemia 12/19/18 23:15 01/18/19 23:14 Dextrose (Dextrose 50%) 50 ml Q30M PRN IV Hypoglycemia 12/19/18 23:15 01/18/19 23:14 Diphenhydramine HCl (Benadryl) 25 mg Q6H PRN ORAL Itching/Pruritis 12/19/18 23:15 01/18/19 23:14 Ketorolac Tromethamine (Toradol 30mg) 30 mg Q6HR IV 12/20/18 18:00 12/25/18 17:59 12/21/18 12:00 Lorazepam (Ativan 2mg/ml 1ml) 1 mg Q4H PRN IV agitation 12/19/18 23:15 12/26/18 23:14 Metoclopramide HCl (Reglan) 10 mg Q6H PRN IVP servere nauasea 12/19/18 23:15 01/18/19 23:14 12/20/18 01:13 Morphine Sulfate (Morphine Sulfate) 2 mg Q4H PRN IVP Moderate Pain (Pain Scale 4-6) 12/20/18 19:15 12/26/18 23:14 Morphine Sulfate (Morphine Sulfate) 4 mg Q4H PRN IVP Severe Pain (Pain Scale 7-10) 12/20/18 16:45 12/27/18 16:44 12/21/18 04:46 Nitroglycerin (Ntg) 0.4 mg Q5M X 3 DOSES PRN SL Prn Chest Pain 12/19/18 23:15 01/18/19 23:14 Ondansetron HCl (Zofran) 4 mg Q6H PRN IVP Nausea & Vomiting 12/19/18 23:15 01/18/19 23:14 Pantoprazole (Protonix) 40 mg DAILY IV 12/20/18 09:00 01/19/19 08:59 12/21/18 09:24 Polyethylene Glycol (Miralax) 17 gm HSPRN PRN ORAL Constipation 12/19/18 23:15 01/18/19 23:14 12/21/18 01:03 Promethazine HCl 12.5 mg/Sodium Chloride 55.5 ml @ 110 mls/hr Q6H PRN IV Refractory N/V 12/19/18 23:15 01/18/19 23:14 Promethazine HCl 25 mg/Sodium Chloride 56 ml @ 110 mls/hr Q6H PRN IV Refractory N/V 12/19/18 23:15 01/18/19 23:14 Temazepam (Restoril) 15 mg HSPRN PRN ORAL Insomnia 12/19/18 23:15 12/26/18 23:14 Allergies: Coded Allergies: No Known Allergies (Unverified , 03/10/16) ROS Limited/Unobtainable: No Constitutional: Reports: no symptoms HEENT: Reports: no symptoms Cardiovascular: Reports: no symptoms Respiratory: Reports: no symptoms Gastrointestinal/Abdominal: Reports: abdominal pain Genitourinary: Reports: no symptoms Neurologic/Psychiatric: Reports: no symptoms Subjective 18 YO F admitted with lower abdominal pain. Now bilateral ovarian dermoid tumors. Cover for Tru Barton-Dr Rodriguez Objective Last Vital Signs Date Time Temp Pulse Resp B/P (MAP) Pulse Ox O2 Delivery O2 Flow Rate FiO2 12/21/18 12:30 98.3 12/21/18 12:00 75 20 95/56 (69) 98 12/21/18 09:00 Room Air Laboratory Tests Test 12/21/18 07:53 White Blood Count 5.1 K/UL (4.8-10.8) Red Blood Count 3.90 M/UL (4.20-5.40) L Hemoglobin 12.4 G/DL (12.0-16.0) Hematocrit 37.0 % (37.0-47.0) Mean Corpuscular Volume 95 FL (80-99) Mean Corpuscular Hemoglobin 31.7 PG (27.0-31.0) H Mean Corpuscular Hemoglobin Concent 33.4 G/DL (32.0-36.0) Red Cell Distribution Width 11.4 % (11.6-14.8) L Platelet Count 158 K/UL (150-450) Mean Platelet Volume 11.8 FL (6.5-10.1) H Neutrophils (%) (Auto) 55.2 % (45.0-75.0) Lymphocytes (%) (Auto) 29.1 % (20.0-45.0) Monocytes (%) (Auto) 13.2 % (1.0-10.0) H Eosinophils (%) (Auto) 2.2 % (0.0-3.0) Basophils (%) (Auto) 0.4 % (0.0-2.0) Reticulocyte Count 1.3 % (0.0-2.0) Prothrombin Time 11.0 SEC (9.30-11.50) Prothromb Time International Ratio 1.0 (0.9-1.1) Activated Partial Thromboplast Time 33 SEC (23-33) Sodium Level 140 MMOL/L (136-145) Potassium Level 3.5 MMOL/L (3.5-5.1) Chloride Level 105 MMOL/L (98-107) Carbon Dioxide Level 26 MMOL/L (21-32) Anion Gap 9 mmol/L (5-15) Blood Urea Nitrogen 7 mg/dL (7-18) Creatinine 0.7 MG/DL (0.55-1.30) Estimat Glomerular Filtration Rate > 60 mL/min (>60) Glucose Level 84 MG/DL (74-106) Calcium Level 8.4 MG/DL (8.5-10.1) L Iron Level 23 ug/dL (50-175) L Total Iron Binding Capacity 215 ug/dL (250-450) L Percent Iron Saturation 11 % (15-50) L Unsaturated Iron Binding 192 ug/dL (112-346) Ferritin 94 NG/ML (8-388) Total Bilirubin 0.3 MG/DL (0.2-1.0) Aspartate Amino Transf (AST/SGOT) 18 U/L (15-37) Alanine Aminotransferase (ALT/SGPT) 19 U/L (12-78) Alkaline Phosphatase 54 U/L (46-116) Total Protein 6.2 G/DL (6.4-8.2) L Albumin 3.1 G/DL (3.4-5.0) L Globulin 3.1 g/dL Albumin/Globulin Ratio 1.0 (1.0-2.7) Vitamin B12 Level 265 PG/ML (193-986) Folate 16.1 NG/ML (8.6-58.9) Thyroid Stimulating Hormone (TSH) 2.434 uiU/mL (0.358-3.740) Free Thyroxine 1.13 NG/DL (0.76-1.46) Intake and Output 12/20/18 12/21/18 18:59 06:59 Intake Total 675 ml 340 ml Output Total 0 ml Balance 675 ml 340 ml Intake Oral 340 ml IV Total 675 ml Output Stool Total 0 ml # Voids 2 Objective PHYSICAL EXAMINATION: GENERAL: The patient is well-nourished and well-developed white female, in no apparent distress. HEENT: Eyes, pupils are equal and responsive to light and accommodation. Extraocular movements are intact. NECK: Supple without lymphadenopathy. CHEST: Lungs are clear to auscultation bilaterally without wheezes or rales. CARDIOVASCULAR: Regular rhythm and rate. S1 and S2 are normal without murmurs, rubs, or gallops. ABDOMEN: Soft and tender to palpation in the bilateral lower quadrant without rebound or guarding noted. No evidence of hepatosplenomegaly, rebound, or guarding noted. EXTREMITIES: Negative for clubbing, cyanosis, or edema. RECTAL: Refused. GENITAL: Refused. NEUROLOGICAL: Cranial nerves II through XII are grossly intact without focal deficits. Motor strength is 5/5 bilaterally. Deep tendon reflexes are 2+ plantar. Assessment/Plan Assessment/Plan ASSESSMENT: This is a 18-year-old white female with, 1. Bilateral lower quadrant abdominal pain. 2. Bilateral dermoid ovarian tumors. 3. Nausea and vomiting. TREATMENT: 1. Abdominal pain/bilateral ovarian dermoid tumors. A Gynecology consultation was obtained with Dr. Capellan. Recommendations of Gynecology=schedule outpatient surgery. The patient is currently tolerating a clear liquid diet. The patient will be offered Zofran p.r.n. for nausea and vomiting. A Gastroenterology consultation has been obtained with Dr. Alex Mai. Flex Millan MD Dec 21, 2018 16:02
--- NOTE | 2018-12-22 13:27 | NUR ---
CASE MANAGEMENT: CM review and clinical information (face sheet/ DC instruction/ ER MD notes/ H&P/ progress notes) faxed to [facility] @ [phone] and [employer] @ [phone]. REF# : [id number].
--- NOTE | 2018-12-24 12:45 | Discharge Summary ---
Discharge Summary Discharge Summary _ DATE OF ADMISSION: 12/19/2018 DATE OF DISCHARGE: 12/21/2018 DISCHARGED BY: Dr. Rodriguez REASON FOR ADMISSION: 18 years old female with past medical history of ovarian cysts, migraine, seizure disorder, presented to emergency department with complaint of severe lower abdominal pain since last night. Patient was seen in the emergency department prior and received analgesic along with antibiotic , before being discharged. However, patient stated that her pain worsened and not controlled with the prescribed prescription. She reported abdominal fullness and bloating. Patient denied fever and chills. She denied constipation, diarrhea . She denied vaginal bleeding or vaginal discharge. Patient reported history of ovarian cyst in the past, but at this time it appeared to be more painful , than she had experienced in the past. Patient followed up by primary care provider, but was never seen by a traffic enumerator. She denied or suspicion for STD. Pain exacerbated upon pressing on her stomach or certain movements. Upon evaluation vital signs were stable. Laboratory workup revealed no leukocytosis , stable hemoglobin and hematocrit , stable electrolytes and renal parameters. Transvaginal ultrasound revealed bilateral ovarian dermoids without change. CT of the abdomen and pelvis revealed no appendicitis, no inflammatory bowel changes , no bowel obstruction ,no free fluid, no free air. Bilateral ovarian dermoids, larger on the left side demonstrated No adjacent fluid or stranding. Urinalysis revealed positive nitrate . Urine test was performed prior and was negative. Patient started on the IV fluids, provided with analgesia and was admitted to medical surgical floor for further management. CONSULTANTS: pulmonary Dr. Mendez GI specialist Dr. Mai SOFTWARE PRODUCT SPECIALIST Dr. Castillo [facility] COURSE: Patient was admitted to medical surgical floor. Patient started on the IV fluids. Pain management was addressed. According to patient, she had abdominal pain since age 12. Per nursing staff, patient was asking for pain medication [id number] , suspicious for pain seeking behavior. No alarming signs and symptoms per GI specialist from GI perspective. CT of the abdomen and pelvis was negative for intra-abdominal pathology. Abdominal ultrasound revealed no acute findings. Bowel regimen instituted. Supportive care provided . GI specialist cleared patient for discharge. SOFTWARE PRODUCT SPECIALIST followed. Clinical picture with intractable pain was not consistent with dermoid cyst . Patient reported being tender in the upper abdomen and lower abdomen , which was unlikely due to dermoids. Clinical picture was not consistent with ovarian torsion . However , LOCAL AREA NETWORK SYSTEMS ADMINSTRATOR specialist recommended to amend transvaginal ultrasound to include findings of Doppler study , since no comment on flow to the ovaries was made. Radiologist was contacted to amend the report. Per LOCAL AREA NETWORK SYSTEMS ADMINSTRATOR specialist, etiology of patient's pain was unclear with differential diagnosis including GI causes versus ruptured ovarian cyst. However, only small amount of free fluid in pelvis noted on ultrasound, thus making cyst rupture unlikely. Urine culture revealed E coli. Prescription for antibiotic was given on the visit to ED the night before. Patient was instructed to complete antibiotic course as prescribed. While patient reported being in pain , she was not in acute distress ( talking on the phone, sitting comfortably in the bed, eating ) , therefore emergent surgical intervention was not recommended at this time by LOCAL AREA NETWORK SYSTEMS ADMINSTRATOR specialist. LOCAL AREA NETWORK SYSTEMS ADMINSTRATOR specialist recommended outpatient management and follow-up with LOCAL AREA NETWORK SYSTEMS ADMINSTRATOR as outpatient to arrange for additional imaging and possible surgical management. Diet was advanced as tolerated. Pain was managed with IM Toradol [id number]. Patient was able to be weaned from morphine. Pain was controlled. Oral contraceptive were continued. Heparin was discontinued. Sequential compression device was provided for DVT prophylaxis. Patient stabilized : pain control achieved , tolerated diet. Patient was stable for discharge home. Outpatient follow-up with primary care provider in the next few days to arrange referral to outpatient SOFTWARE PRODUCT SPECIALIST for further management. FINAL DIAGNOSES: Ovarian dermoid cyst/tumor bilaterally Intractable abdominal pain Nausea and vomiting DISCHARGE MEDICATIONS: See Medication Reconciliation list. DISCHARGE INSTRUCTIONS: Patient was discharged home Follow up with primary care provider this week with referral to LOCAL AREA NETWORK SYSTEMS ADMINSTRATOR for further management. I have been assigned to dictate discharge summary for this account. I was not involved in the patient's management. Yocasta Guthrie NP Dec 24, 2018 12:45
== END 2018-12-21 14:00 | disposition home or self-care (01) | DRG 532 ==
LOC: EMR 20:10 → 3E 21:03 → EDBEDREQ 22:08
DX: D27.0 Benign neoplasm of right ovary (principal); D64.9 Anemia, unspecified; G89.29 Other chronic pain; D27.1 Benign neoplasm of left ovary; R10.30 Lower abdominal pain, unspecified; R11.2 Nausea with vomiting, unspecified
CPT/HCPCS: 36415; 74176; 76700; 76830; 76856; 80053; 82150; 82607; 82728; 82746; 83540; 83550; 83690; 84439; 84443; 85025; 85044; 85610; 85730; 96361; 96374; 96375; 96376; 99285; J2405; J2765

== ENCOUNTER → 2020-02-24 | Emergency (ER) | payer MEDICAID ==
[~2020-02-24] VITALS: Ht 157.5 cm; Wt 65.8 kg
[~2020-02-24] MED LIST changes: +ACETAMINOPHEN-1 EAC1 ORAL; +BACITRACIN1 EACH TOPIC; +ERYTHROMYCIN3.5 GM LEFT EYE; +Fluorescein Strips LEFT EYE ONE; +Fluorescein Strips ONE; +IBUPROFEN600 M1 ORAL; +Lidocaine 1% MPF 10mg/ml 5ml IM ONE; +Tetracaine 0.5% Opth 4ml Soln LEFT EYE ONE
--- NOTE | 2020-02-24 11:21 | NUR ---
ED Nurse Note: Patient walked into the ER with complaints of eye injury. Per patient she was walking in the bathroom this morning and slipped, hitting her head on a corner of a sink causing laceration on her left corner of the eye. Patient is AAOx4 and ambulatory.
[2020-02-24 12:00] VITALS: BP 105/66
--- NOTE | 2020-02-24 12:32 | NUR ---
ER DISCHARGE NOTE: Patient is cleared to be discharged per ERMD, pt is aox4, on room air, with stable vital signs. pt was given dc and prescription instructions, pt was able to verbalize understanding, pt id band and iv site removed without complications. Pt is able to ambulate with steady gait. pt took all belongings.
[2020-02-24 12:33] VITALS: BP 108/84
--- NOTE | 2020-02-24 14:38 | Emergency Room Report ---
History of Present Illness General Chief Complaint: Eye Problems Source: Patient Present Illness HPI Disclaimer: Please note that this report is being documented using [employer] technology. This can lead to erroneous entry secondary to incorrect interpretation by the dictating instrument. HPI: 19-year-old female no past medical history presented for left eye pain. She slipped and fell in her bathroom striking the corner of her left eye on the bathroom sink. No LOC. Complains of 8 out of 10 pain in the area. Nonradiating. No vision changes. No nausea no vomiting. She does not wear contacts but does wear glasses. PMH: None PSH: Reviewed Social Hx: Patient denies smoking drinking or illicit drug use Allergies: Coded Allergies: No Known Allergies (Unverified , 03/10/16) COVID-19 Screening Contact w/high risk pt: No Recent Travel to affected area: No Experienced COVID-19 symptoms?: No COVID-19 Testing performed PEAT SHREDDER TENDER: No Patient History Last Menstrual Period: bcp Now: No Reviewed Nursing Documentation: PMH: Agreed; PSxH: Agreed Nursing Documentation-PMH Past Medical History: No Stated History Hx Cancer: No Hx Gastrointestinal Problems: No Hx Neurological Problems: Yes - migraine Hx Seizures: Yes Review of Systems All Other Systems: negative except mentioned in HPI Physical Exam Vital Signs Date Time Temp Pulse Resp B/P (MAP) Pulse Ox O2 Delivery O2 Flow Rate FiO2 02/24/20 11:11 98.4 73 20 105/66 (79) 98 Room Air Sp02 EP Interpretation: reviewed, normal General Appearance: well appearing, no apparent distress Head: normocephalic, other - Bruising noted around left eye no depressions or deformities Eyes: left eye PERRL, left eye lid inflammation - 0.5 cm laceration to the lateral edge of the upper left eyelid; bilateral eye fluoroscene uptake - No fluorescein uptake bilaterally, bilateral eye EOMI ENT: hearing grossly normal, moist mucus membranes Neck: full range of motion, supple, other - No midline tenderness Respiratory: lungs clear, normal breath sounds, no rhonchi, no respiratory distress, no retraction, no wheezing Cardiovascular #1: normal peripheral pulses, regular rate, rhythm, no murmur Gastrointestinal: non tender, soft, non-distended, no guarding Neurologic: alert, oriented x3, no focal defects Skin: normal color, warm/dry Procedures Laceration/Wound Repair Laceration/Wound Repair : Consent: Verbal Wound Location: face Wound Explored: clean Anesthesia: 1% Lidocaine Wound Debrided: None Wound Repaired With: sutures Suture Size/Type: 6:0 Number of Sutures: 2 Patient Tolerated: Well Complications: None Progress Location left eyelid Eye Procedure Eye Procedure : Consent: Verbal Medical Decision Making Diagnostic Impression: Primary Impression: Eyelid laceration ER Course Patient presented for laceration to the left eyelid. Laceration repaired by me. No foreign body noted on exam extraocular muscles intact. Low suspicion for serious traumatic injury. Patient discharged with instructions to return in 1 week for suture removal. Discharged with topical antibiotic ointment. Return precautions were given. Stable for discharge. Suspicion for globe rupture negative Lynne sign, no fluorescein uptake on my exam. Last Vital Signs Date Time Temp Pulse Resp B/P (MAP) Pulse Ox O2 Delivery O2 Flow Rate FiO2 02/24/20 12:33 98.1 84 20 108/84 98 Room Air Disposition: HOME, SELF-CARE Scripts Ibuprofen* (MOTRIN*) 600 Mg Tablet 600 MG ORAL Q6H PRN for For Pain, #30 TAB 0 Refills Prov: Krish Lunsford M.D. 02/24/20 Erythromycin Base (ERYTHROMYCIN*) 3.5 Gm Oint...g. 1 APPLIC LEFT EYE TID, #3.5 GM 0 Refills Prov: Krish Lunsford M.D. 02/24/20 Referrals: [facility] Patient Instructions: Facial Laceration, [id number] Additional Instructions: Please return in 1 week for suture removal. Please return sooner for any worsening symptoms or concerns. Krish Lunsford M.D. Feb 24, 2020 14:38
== END | disposition home or self-care (01) ==
LOC: EMR 11:40
DX: S01.112A Laceration without foreign body of left eyelid and periocular area, initial encounter (principal); W01.0XXA Fall on same level from slipping, tripping and stumbling without subsequent striking against object, initial encounter; Y92.9 Unspecified place or not applicable; G40.909 Epilepsy, unspecified, not intractable, without status epilepticus
CPT/HCPCS: 12011; Z7502; 99283

== ENCOUNTER 2020-03-02 20:45 | Emergency (ER) | payer MEDICAID ==
[~2020-03-02] VITALS: Ht 157.5 cm; Wt 65.8 kg
[~2020-03-02 20:45] MED LIST changes: -BACITRACIN1 EACH TOPIC; -Fluorescein Strips LEFT EYE ONE; -Fluorescein Strips ONE; -Lidocaine 1% MPF 10mg/ml 5ml IM ONE; -Tetracaine 0.5% Opth 4ml Soln LEFT EYE ONE
--- NOTE | 2020-03-02 21:00 | NUR ---
not in waiting room
[2020-03-02 21:30] VITALS: BP 110/69
[2020-03-02] MEDS ORDERED: Tetanus/Diptheria/Pertussis IM ONE (21:30)
--- NOTE | 2020-03-02 21:30 | NUR ---
ED Nurse Note: Pt walked into ED for suture removal on L eye. Pt denies pain to L eye, but reports mild discomfort from sutures. No other complaints noted. Pt is aaox4, breathing is normal and unlabored, NAD.
--- NOTE | 2020-03-02 21:38 | Emergency Room Report ---
History of Present Illness General Chief Complaint: Wound Recheck/Suture Removal Source: Patient Present Illness HPI Patient is a 19-year-old female who presents to the ER for suture removal. That she had 2 sutures placed a week ago after injuring her left eyelid. She states they did not update her tetanus and she does not know when her last tetanus shot was. She denies any pain or discharge from the site. Allergies: Coded Allergies: No Known Allergies (Unverified , 03/10/16) COVID-19 Screening Contact w/high risk pt: No Recent Travel to affected area: No Experienced COVID-19 symptoms?: No COVID-19 Testing performed HEAD CHARGER: No Patient History Reviewed Nursing Documentation: PMH: Agreed; PSxH: Agreed Nursing Documentation-PMH Hx Cancer: No Hx Gastrointestinal Problems: No Hx Neurological Problems: Yes - migraine Hx Seizures: Yes Review of Systems All Other Systems: negative except mentioned in HPI Physical Exam Vital Signs Date Time Temp Pulse Resp B/P (MAP) Pulse Ox O2 Delivery O2 Flow Rate FiO2 03/02/20 21:26 98.8 85 16 110/69 (83) 98 Room Air Sp02 EP Interpretation: reviewed, normal General Appearance: no apparent distress, alert, GCS 15, non-toxic Head: normocephalic, atraumatic Eyes: left eye normal inspection, left eye PERRL, left eye other - Left upper outer eyelid [address] healing laceration site ENT: hearing grossly normal, normal pharynx, no angioedema, normal voice Neck: full range of motion, supple/symm/no masses Respiratory: chest non-tender, lungs clear, normal breath sounds, speaking full sentences Cardiovascular #1: regular rate, rhythm, no edema Cardiovascular #2: 2+ carotid (R), 2+ carotid (L) Gastrointestinal: normal bowel sounds, non tender, soft, non-distended, no guarding, no rebound Rectal: deferred Musculoskeletal: normal inspection, normal range of motion Neurologic: alert, motor strength/tone normal, oriented x3, sensory intact, responsive, speech normal Psychiatric: no suicidal/homicidal ideation Skin: no rash Lymphatic: no adenopathy Medical Decision Making Diagnostic Impression: Primary Impression: Visit for suture removal ER Course Which was removed without complication. Patient updated on her tetanus. After discussing risks and benefits of further diagnostics, treatment plans, as well as indications for and risks of admission, the patient is agreeable to being discharged home. I have explained that their evaluation and treatment in the emergency department today is an important step towards them achieving better health but that their evaluation today is not intended to replace further evaluation and treatment by a physician in their local clinic. I have explained that while the current findings suggest no immediate life threatening emergency they will require further evaluation and treatment by a physician of their choice in their area. They understand that it will be necessary for them to review the final reports of their ED visit with their clinic physician. We have reviewed indications for return to the Emergency Department. I have explained that additional time may need to pass and/or additional testing as an outpatient may be necessary before a definitive diagnosis can be made. They tell me they are willing to follow up as instructed within the timeframe I recommend. They appear to understand what we discussed. Additionally they understand that if they are unable to be seen by an outpatient physician they are welcome, and in fact should, return to the Emergency Department for a repeat evaluation. The patient is stable at time of discharge. Last Vital Signs Date Time Temp Pulse Resp B/P (MAP) Pulse Ox O2 Delivery O2 Flow Rate FiO2 03/02/20 21:26 98.8 85 16 110/69 (83) 98 Room Air Disposition: HOME, SELF-CARE Condition: Stable Patient Instructions: Suture Removal, Care After Additional Instructions: The patient was provided with discharge instructions, notified to follow-up with a primary care doctor and or specialist in the next 24-48 hours, and to return to the ED if they have worsening of their symptoms. Please note that this report is being documented using [employer] technology. This can lead to erroneous entry secondary to incorrect interpretation by the dictating instrument. Marily Fortune M.D. Mar 02, 2020 21:38
--- NOTE | 2020-03-02 21:40 | NUR ---
ED Nurse Note: ERMD bedside. ERMD removed 1 suture. Pt instructed to follow up in two days for second suture removal.
[2020-03-02 22:05] VITALS: BP 108/75
--- NOTE | 2020-03-02 22:05 | NUR ---
ER DISCHARGE NOTE: Patient is cleared to be discharged per ERMD, pt is aox4, on room air, with stable vital signs. pt was given dc and prescription instructions, pt was able to verbalize understanding, pt id band removed. pt is able to ambulate with steady gait. pt took all belongings.
== END 2020-03-02 22:05 | disposition home or self-care (01) ==
LOC: EMR 21:00
DX: Z48.02 Encounter for removal of sutures (principal); G40.909 Epilepsy, unspecified, not intractable, without status epilepticus; Z23 Encounter for immunization
CPT/HCPCS: 90471; 90715; Z7502; 99281

== ENCOUNTER 2020-03-04 08:20 | Emergency (ER) | payer OTHER, MEDICAID ==
[~2020-03-04] VITALS: Ht 157.5 cm; Wt 65.8 kg
[2020-03-04 08:22] VITALS: BP 123/74
[2020-03-04] MEDS ORDERED: Neosporin Oint Ud Pkt TOPIC ONE (09:00)
--- NOTE | 2020-03-04 09:09 | Emergency Room Report ---
History of Present Illness General Chief Complaint: Pain Source: Patient Present Illness HPI Patient presents with complaints of injury to the right foot reports that this occurred on Sunday or Sunday she cannot give a specific date reports that she injured it Essentially hitting it against a metal tag Patient reports that she has been going to work over the past week while wearing her shoe Feels that the area has been exacerbated and has more discomfort now Denies any fevers or chills denies any ankle pain Denies any chest pain or shortness of breath denies any fevers Allergies: Coded Allergies: No Known Allergies (Unverified , 03/10/16) COVID-19 Screening Contact w/high risk pt: No Recent Travel to affected area: No Experienced COVID-19 symptoms?: No COVID-19 Testing performed DEVELOPER AUTOMATIC: No Patient History Past Medical History: see triage record Last Menstrual Period: Pt has contraceptive implant Reviewed Nursing Documentation: PMH: Agreed; PSxH: Agreed Nursing Documentation-PMH Past Medical History: No Stated History Hx Cancer: No Hx Gastrointestinal Problems: No Hx Neurological Problems: Yes - migraine Hx Seizures: Yes Review of Systems Respiratory: Reports: no symptoms Cardiovascular: Reports: no symptoms Gastrointestinal: Reports: no symptoms Genitourinary: Reports: no symptoms Musculoskeletal: Reports: other - As above Skin: Reports: lesions - Right foot Neurological: Reports: no symptoms Endocrine: Reports: no symptoms Physical Exam Vital Signs Date Time Temp Pulse Resp B/P (MAP) Pulse Ox O2 Delivery O2 Flow Rate FiO2 03/04/20 08:22 99.0 99 16 123/74 98 Room Air Sp02 EP Interpretation: reviewed, normal General Appearance: well appearing, no apparent distress Head: normocephalic, atraumatic Eyes: bilateral eye PERRL, bilateral eye EOMI ENT: hearing grossly normal, EOM grossly intact Neck: supple Respiratory: lungs clear, no respiratory distress, no retraction Cardiovascular #1: regular rate, rhythm Musculoskeletal: other - Abrasion noted to the lateral distal aspect of the right foot, there is very minimal erythema surrounding that region, no obvious fluctuance Neurologic: alert, oriented x3 Skin: other - As above Lymphatic: no adenopathy Medical Decision Making Diagnostic Impression: Primary Impression: Abrasion ER Course Given the patient's history and presentation multiple differentials and consideration the area appears to be consistent with likely abrasion with questionable early mild Cellulitis given the patient's discomfort she is placed on antibiotics Patient stable for close outpatient follow-up Please note that on review of nursing report on triage there was a question regarding patient's wound evaluation However patient did not report this to me and was not further evaluated Last Vital Signs Date Time Temp Pulse Resp B/P (MAP) Pulse Ox O2 Delivery O2 Flow Rate FiO2 03/04/20 08:22 99.0 99 16 123/74 (90) 98 Room Air Status: improved Disposition: HOME, SELF-CARE Condition: Improved Additional Instructions: Patient is provided with the discharge instructions notified to follow up with primary doctor in the next 2-3 days otherwise return to the er with any worsening symptoms. Please note that this report is being documented using [employer] technology. This can lead to erroneous entry secondary to incorrect interpretation by the dictating instrument. Iris Brito DO Mar 04, 2020 09:09
[2020-03-04] MEDS ORDERED: BACITRACIN1 EACH TOPIC (09:15)
[2020-03-04] MEDS ORDERED: CEPHALEXIN500 MG ORAL (09:15)
[2020-03-04 09:23] VITALS: BP 123/74
== END 2020-03-04 09:23 | disposition home or self-care (01) ==
LOC: EMR 09:05
DX: S90.811A Abrasion, right foot, initial encounter (principal); G40.909 Epilepsy, unspecified, not intractable, without status epilepticus; W22.8XXA Striking against or struck by other objects, initial encounter; Y93.9 Activity, unspecified; Y92.9 Unspecified place or not applicable
CPT/HCPCS: 99282

== ENCOUNTER 2020-03-11 15:42 | Emergency (ER) | payer OTHER, MEDICAID ==
[~2020-03-11] VITALS: Ht 157.5 cm; Wt 65.8 kg
[~2020-03-11 15:42] MED LIST changes: +BACITRACIN1 EACH TOPIC
[2020-03-11 15:56] VITALS: BP 132/65
[2020-03-11] MEDS ORDERED: ERYTHROMYCIN3.5 GM LEFT EYE (16:04)
--- NOTE | 2020-03-11 16:04 | Emergency Room Report ---
History of Present Illness General Chief Complaint: Wound Recheck/Suture Removal Source: Patient Present Illness HPI 20-year-old female with no symptom past medical history here requesting suture removal. Sutures were placed in [place] ER 2 weeks ago, 1 week ago however no pus drainage noted. Patient is wearing fake lashes at bedside. 1 suture was removed successfully without any pus drainage. Patient also complains of a stye developing in the right lower eyelid that started 2 days ago. Denies any pain at bedside. Patient reports that she just reusing the fake lashes. Laceration was on the upper eyelid the corner of the lateral side. Denies any new injury. Has not taken medication for symptom relief. Allergies: Coded Allergies: No Known Allergies (Unverified , 03/10/16) COVID-19 Screening Contact w/high risk pt: No Recent Travel to affected area: No Experienced COVID-19 symptoms?: No COVID-19 Testing performed RECORDS ASSOCIATE: No Patient History Past Medical History: see triage record Past Surgical History: none Pertinent Family History: none Now: No - control Immunizations: UTD Reviewed Nursing Documentation: PMH: Agreed; PSxH: Agreed Nursing Documentation-PMH Past Medical History: No History, Except For Hx Cancer: No Hx Gastrointestinal Problems: No Hx Neurological Problems: Yes - migraine Hx Seizures: Yes Review of Systems All Other Systems: negative except mentioned in HPI Physical Exam Vital Signs Date Time Temp Pulse Resp B/P (MAP) Pulse Ox O2 Delivery O2 Flow Rate FiO2 03/11/20 15:48 99.1 71 15 123/56 (78) 98 Room Air Sp02 EP Interpretation: reviewed, normal General Appearance: well appearing, no apparent distress Head: normocephalic, atraumatic Eyes: left eye other - Small stye left lower eyelid; bilateral eye normal inspection ENT: hearing grossly normal, normal voice Neck: full range of motion, supple Respiratory: lungs clear, no rhonchi, no respiratory distress, speaking full sentences Cardiovascular #1: normal inspection, regular rate, rhythm, no murmur Gastrointestinal: non tender Genitourinary: no CVA tenderness Musculoskeletal: normal inspection Neurologic: alert, oriented Psychiatric: mood/affect normal Skin: laceration - Repaired laceration left lateral upper inner eyelid with 1 suture placed Lymphatic: no adenopathy Procedures Additional Procedure Procedure Narrative 1 suture was removed from left upper eyelid on the lateral side Medical Decision Making PA Attestation All diagnoses and treatment plans were reviewed and discussed with my supervising physician Dr. Monsalve Diagnostic Impression: Primary Impression: Encounter for removal of sutures Additional Impression: Stye ER Course 20-year-old female with no symptom past medical history here requesting suture removal. Sutures were placed in [place] ER 2 weeks ago, 1 week ago however no pus drainage noted. Patient is wearing fake lashes at bedside. 1 suture was removed successfully without any pus drainage. Patient also complains of a stye developing in the right lower eyelid that started 2 days ago. Denies any pain at bedside. Patient reports that she just reusing the fake lashes. Laceration was on the upper eyelid the corner of the lateral side. Denies any new injury. Has not taken medication for symptom relief. Ddx considered but are not limited to: bacterial conjunctivitis, allergic conjunctivitis, viral conjunctivitis, periorbital cellulitis, global trauma Vital signs: are WNL, pt. is afebrile H&PE are most consistent with: Suture removal, stye left lower eyelid ORDERS: Erythromycin ophthalmic ointment ED INTERVENTIONS: 1 suture was removed successfully DISCHARGE: At this time pt. is stable for d/c to home. Will provide printed patient care instructions, and any necessary prescriptions. Care plan and follow up instructions have been discussed with the patient prior to discharge. Avoid using the reusable eyelashes. If worsening symptoms return to the emergency room Last Vital Signs Date Time Temp Pulse Resp B/P (MAP) Pulse Ox O2 Delivery O2 Flow Rate FiO2 03/11/20 15:56 99.1 76 18 132/65 99 Room Air Disposition: HOME, SELF-CARE Condition: Stable Scripts Erythromycin Base (ERYTHROMYCIN*) 3.5 Gm Oint...g. 1 APPLIC LEFT EYE Q6HR, #3.5 GM 0 Refills Prov: Van Gutierrez 03/11/20 Patient Instructions: Stye, Suture Removal, Care After Additional Instructions: Take medication as directed, follow-up with your primary care doctor, avoid wearing the reusable lashes of the affected area, if worsening symptoms return to the emergency room Van Gutierrez Mar 11, 2020 16:03
[2020-03-11 16:15] VITALS: BP 137/76
== END 2020-03-11 16:15 | disposition home or self-care (01) ==
LOC: EMR 16:00
DX: Z48.02 Encounter for removal of sutures (principal); S01.112D Laceration without foreign body of left eyelid and periocular area, subsequent encounter; H00.015 Hordeolum externum left lower eyelid; G40.909 Epilepsy, unspecified, not intractable, without status epilepticus; X58.XXXD Exposure to other specified factors, subsequent encounter
CPT/HCPCS: 99281

== ENCOUNTER 2020-12-11 13:35 | Emergency (ER) | payer MEDICAID, OTHER ==
[~2020-12-11] VITALS: Ht 157.5 cm; Wt 73.0 kg
--- NOTE | 2020-12-11 14:02 | NUR ---
Patient reports to the ER with c/o of possible ulcer. Per patient, she has had both diarrhea and constipation x 2 months. She came in today due to attempting to use the bathroom and experiencing " horrible pain and nausea." NKA Hx of seizures, ovarian cysts.
[2020-12-11 14:10] VITALS: BP 128/77
--- NOTE | 2020-12-11 14:24 | Emergency Room Report ---
History of Present Illness General Chief Complaint: Pain Source: Patient Present Illness HPI Disclaimer: Please note that this report is being documented using DRAGON technology. This can lead to erroneous entry secondary to incorrect interpretation by the dictating instrument. HPI: This a 20-year-old female presenting for evaluation of abdominal cramping and diarrhea. Symptoms present 2 to 3 months. She reports usually waking up with lower pelvic cramping followed by loose stools. After her bowel movement she feels better. She has no pain during the day otherwise. She eats a greasy, high processed food diet and enjoys spicy foods. She also smokes a vape regularly. She denies upper abdominal pain or vomiting. She also reports sometimes she has several days of constipation and then returns to the diarrhea. Denies mucousy stools. Will sometimes feel nauseated in the morning as well but this also resolves after a bowel movement. She denies melena or hematochezia. Denies vaginal bleeding or vaginal discharge. She has a Nexplan on control implant and has not had a regular period in over 1 year. Prior history of ovarian cyst but states this does not feel the same way. Denies history of abdominal surgeries. PMH: Ovarian cyst PSH: Denied Allergies: Denied Social Hx: Heavy vape use Allergies: Coded Allergies: No Known Allergies (Unverified , 03/10/16) COVID-19 Screening Contact w/high risk pt: No Recent Travel to affected area: No Experienced COVID-19 symptoms?: No COVID-19 Testing performed SPECIAL PROCEDURE TECH: No COVID-19 Screening: Negative COVID-19 COVID-19 Testing Source: [facility] Patient History Last Menstrual Period: Last year November Now: No : 0 Para: 0 Nursing Documentation-PMH Past Medical History: No History, Except For Hx Cancer: No Hx Gastrointestinal Problems: No Hx Neurological Problems: Yes - migraine Hx Seizures: Yes Review of Systems All Other Systems: negative except mentioned in HPI Physical Exam Vital Signs Date Time Temp Pulse Resp B/P (MAP) Pulse Ox O2 Delivery O2 Flow Rate FiO2 12/11/20 14:02 98.2 78 16 128/77 (94) 100 Room Air General: Awake and alert, no acute distress HEENT: NC/AT. EOMI. Resp: Normal work of breathing Abdomen: Soft, nontender, nondistended. No rebound. No guarding. No masses palpable. Skin: Intact. No abrasions, laceration or rash over the exposed skin MSK: Normal tone and bulk. Moving all extremities. No obvious deformity. Neuro: Awake and alert. Mentating appropriately Medical Decision Making Diagnostic Impression: Primary Impression: Abdominal cramping ER Course This is a otherwise healthy 20-year-old female presenting for evaluation of several months lower abdominal cramping and diarrhea. Differential includes is not limited to irritable bowel syndrome, GERD, inflammatory bowel disease such as Crohn's or ulcerative colitis, food sensitivity, celiac's motility disorder among others. She is well-appearing has no complaints at this time. No pain and had a loose stool this morning but no further diarrhea and no vomiting today. Belly is benign. Overall her presentation is most consistent with something like irritable bowel syndrome based on her diet and lifestyle factors. There is no family history of Crohn's or UC. She has a PMD but has not seen them regularly in some time. Recommend admit limitation diet to determine food sensitivity and possible [id number] food sensitivity screening test. She may be referred to drill press operator for metal by her PMD if these outpatient steps do not help. She denies symptoms of GERD. She is overall well-appearing at this time I do not believe she requires emergent labs or imaging. Patient is stable to follow-up with PMD and referral to GI as needed. Recommended she return with new or worsening symptoms. She understands and agrees with the treatment plan. Last Vital Signs Date Time Temp Pulse Resp B/P (MAP) Pulse Ox O2 Delivery O2 Flow Rate FiO2 12/11/20 14:10 97.8 78 16 128/77 100 Room Air Disposition: HOME, SELF-CARE Condition: Stable Patient Instructions: Irritable Bowel Syndrome, Adult Additional Instructions: Start elimination diet to determine food sensitivity. Please follow-up with your primary care doctor in the next 1 to 3 days to discuss this emergency department visit and for reevaluation. If you have any new or worsening symptoms please return to the emergency department for reevaluation. Please note that this report is being documented using BettingXpert technology. This can lead to erroneous entry secondary to incorrect interpretation by the dictating instrument. Alvaro Monsalve MD Dec 11, 2020 14:24
== END 2020-12-11 14:26 | disposition home or self-care (01) ==
LOC: EMR 14:16
DX: R10.30 Lower abdominal pain, unspecified (principal); R19.7 Diarrhea, unspecified; K59.00 Constipation, unspecified; G40.909 Epilepsy, unspecified, not intractable, without status epilepticus
CPT/HCPCS: 99281